=== PATIENT | male | born 1965 | race Caucasian/White ===

== ENCOUNTER 2018-08-29 13:43 | Emergency (ER) | payer OTHER, SELFPAY ==
[2018-08-29 13:48] VITALS: BP 158/98; PULSE 92; RESP 16; TEMP 36.7; O2SAT 98
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
[2018-08-29] MEDS: Ibuprofen 600 MG TAB PO (14:16)
[2018-08-29] MEDS: Acetaminophen 500 MG TAB 1000 MG PO (14:16)
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
== END 2018-08-29 15:37 | disposition home or self-care (01) ==
PROVIDERS: Emergency Provider Physician Assistant; PCP Internal Medicine
DX: T20.10XA Burn of first degree of head, face, and neck, unspecified site, initial encounter (principal); T22.111A Burn of first degree of right forearm, initial encounter; T31.0 Burns involving less than 10% of body surface; X18.XXXA Contact with other hot metals, initial encounter
CPT/HCPCS: 90471; 99283

== ENCOUNTER 2019-02-27 16:05 | Outpatient (REF) | payer OTHER, SELFPAY ==
[2019-02-27 21:38] LABS: Abs Immature Grans 0.01 k/cumm (0.0-0.09); Absolute Basophil Count 0.03 k/cumm (0.0-0.2); Absolute Lymphocyte Count 1.43 k/cumm (1.2-3.4); Absolute Monocyte Count 0.34 k/cumm (0.11-0.7); Absolute Neutrophil Count 3.51 k/cumm (1.2-6.7); Basophils % 0.6; Eosinophils % 1.8; HCT 40.5 % (40.0-50.0); HGB 13.9 g/dL (13.5-17.5); Immature Grans % 0.2; Lymphocytes % 26.4; Mean Corp. HGB Concentration 34.3 g/dL (32.0-36.0); Mean Corpuscular Hemoglobin 31.7 pg (27.0-33.0); Mean Corpuscular Volume 92.3 fL (80-95); Mean Platelet Volume 11.3 fL (8.0-11.0); Monocytes % 6.3; Neutrophils % 64.7; Platelet Count 241 x1000/uL (130-400); RBC 4.39 m/cumm (4.50-6.00); RBC Distribution Width 12.6 % (11.8-14.1); White Blood Cell Count 5.42 k/cumm (4.4-10.8)
[2019-02-27 21:47] LABS: Iron 67 ug/dL (50-175); Total Iron Binding Capacity 258 ug/dL (250-450); Transferrin Sat 26 % (20-55)
[2019-02-27 22:22] LABS: ALT 21 U/L (12-78); AST 13 U/L (15-37); Albumin 3.9 g/dL (3.4-5.0); Alkaline Phosphatase 84 U/L (46-116); Anion Gap 9.3 mmol/L (3-11); BUN 12 mg/dL (7-18); Bilirubin, Total 0.3 mg/dL (0.2-1.0); CO2 26.7 mmol/L (21.0-32.0); CREATININE 1.05 mg/dL (0.70-1.30); Calcium 9.6 mg/dL (8.5-10.1); Chloride 107 mmol/L (98-107); Ferritin 190 ng/mL (8-388); Glucose 91 mg/dL (70-100); Magnesium 2.1 mg/dL (1.8-2.4); Potassium 4.5 mmol/L (3.5-5.1); Sodium 143 mmol/L (136-145); TSH (W/Ref FT4) 0.82 uIU/mL (0.358-3.74); Total Protein 6.8 g/dL (6.4-8.2); Vitamin B12 431 pg/mL (193-986)
[2019-02-27 22:25] LABS: ESR 9 MM/HR (1-20)
[2019-02-27 22:42] LABS: C-Reactive Protein 0.15 mg/dL (0.0-0.3); Creatine Kinase 135 U/L (39-308)
[2019-03-02 00:09] LABS: Anaplasma phagocytophilum Negative (Negative); B. miyamotoi PCR Negative (Negative); Babesia divergens/MO-1 Negative (Negative); Babesia duncani Negative (Negative); Babesia microti Negative (Negative); Ehrlichia chaffeensis Negative (Negative); Ehrlichia ewingii/canis Negative (Negative); Ehrlichia muris eauclairensis Negative (Negative)
[2019-03-03 11:06] LABS: Hepatitis C Ab w Rflx HCV PCR Negative (NEGAT)
[2019-03-03 11:47] LABS: Lyme Ab w Rflx to Lyme Confirm Negative
[2019-03-03 14:00] LABS: ANA Interpretation Negative (NEGAT)
== END 2019-02-27 16:25 ==
LOC: NCHCN 16:05
PROVIDERS: PCP Internal Medicine; Visit Provider Nurse Practitioner Family
DX: R07.9 Chest pain, unspecified (principal); R53.83 Other fatigue; M79.10 Myalgia, unspecified site; W57.XXXA Bitten or stung by nonvenomous insect and other nonvenomous arthropods, initial encounter; T14.8XXA Other injury of unspecified body region, initial encounter; Z11.59 Encounter for screening for other viral diseases
CPT/HCPCS: 80053; 82550; 85652; 86803; 87798; 82607; 82728; 83540; 83550; 83735; 84443; 85025; 86038; 86140; 86618

== ENCOUNTER 2019-07-29 08:21 | Emergency (ER) | payer OTHER, SELFPAY ==
[2019-07-29 08:26] VITALS: BP 148/78; PULSE 79; RESP 18; TEMP 36.7; O2SAT 99
--- NOTE | 2019-07-29 08:29 | DI.RAD_ITS ---
EXAM: XR THUMB LT INDICATION: crushed at prox phalanx in bear trap. COMPARISON: No exams were available for comparison TECHNIQUE: 2D digital imaging was performed. FINDINGS: There is soft tissue swelling around the thumb. There is a fracture fragment seen on the AP view at the joint space. There is also a tiny bony fragment at the radial aspect of the base of the distal p halanx which is not definitely acute. IMPRESSION: Intra-articular fracture at the base of the distal phalanx of the thumb.
--- NOTE | 2019-07-29 08:29 | ED.GENADUL_ITS ---
Discharge Plan Disposition Patient Disposition: HOME Condition: Good Discharge Details Chief Complaint: Orthopedic Clinical Impression: Closed fracture of left thumb Primary Care Provider: Moshe De La Rosa ED Provider: Tho Keenan Home Meds and New Rx's Prescriptions: No Action tadalafil [Cialis] 5 mg tablet 5 mg PO DAILY Qty: 90 RF: 4 acetaminophen 325 mg Tablet 325 mg PO ONCE PRNRF: 0 ibuprofen 200 mg Tablet 200 mg PO Q6H PRNRF: 0 Discharge Instructions Instructions: Thumb Fracture (ED) Additional Instructions: There appears to be a fracture for your thumb. Please keep the splint on for the next 1 to 2 weeks as directed. Take Tylenol and Motrin and ice as needed for pain. If your symptoms do not improve over the next 1 to 2 weeks you may require repeat imaging and evaluation by an project management it specialist. Please do your best to avoid using your thumb. If at any point you change your mind we are happy to write a work note for you to limit your use in need of your thumb. If you notice any worsening of your symptoms, or any new symptoms such as vomiting, diarrhea, fever, chills, shortness of breath, chest pain, numbness, weakness, or fainting , please return immediately to the emergency department for reevaluation. Please follow up with your primary care provider as soon as possible for reassessment and reevaluation. As always, it was a pleasure participating in your medical care today. Referrals: Moshe De La Rosa MD [Primary Care Provider] - Medical Decision Making This is a 53-year-old male who is right-hand dominant who presents today for evaluation of left thumb pain. Yesterday he got his thumb stuck in a [place] trap on his left hand. Thumb was stuck in the trap for 15 minutes as he tried to get it out. He has been using ice, Tylenol and Motrin. He has extreme pain with flexing and extending the thumb, and notable pain with movement of the thumb. He does have good two-point discrimination, and vascular exam demonstrates no evidence of compromise. Suspect fracture of the thumb base. We will get an x-ray for further assessment. Patient does not want any work notes. 8:52 AM X-ray does show evidence of appears to be 2 small fractures, one at the proximal aspect of the distal phalanx with a chip at the edge, as well as a potential tiny fracture at the distal component of the proximal phalanx. We did splint the patient's thumb, he tolerated this well. We did try a thumb spica, however this was both in conducive to the splint otherwise, and incongruent with the patient's lifestyle. I did offer a work note for the patient, which she has denied. Do recommend continued ice, Tylenol and Motrin. Discussed the importance of close follow-up with his PCP and potential orthopedic follow-up if his symptoms do not improve over the next 1 to 2 weeks. I have extensively reviewed the treatment plan and discharge instructions with the patient. I have addressed all patient concerns at this time. The patient was made aware of what symptoms to monitor for that would warrant a return to the emergency department. Discussed the plan with the patient, they demonstrate verbal understanding and agreement with our assessment and plan at this time. HPI General Date/Time Provider Initiated Documentation: 07/29/19 08:26 . HPI Narrative: 53-year-old male who is right-hand dominant presents today for injury to his left thumb. Yesterday he was working on his fever traps when the trap snapped and cut his left thumb. He states that it squished it notably at the proximal phalanx, and it took him 15 minutes to remove it from the trap. He had been icing it using Tylenol and Motrin for pain. He is unable to move the finger secondary to pain. He denies any numbness or tingling. He does state that last night it was fairly numb and tingly though. There were initial color changes when it first happened for about 10 to 15 minutes he says it was blue and purple while it was in the trap. Patient denies any other complaints at this time. He denies any other sites of injury. Related Data Home Medications Medication Instructions Recorded Confirmed tadalafil 5 mg tablet 5 mg PO DAILY #90 tab 04/11/19 04/11/19 acetaminophen 325 mg PO ONCE PRN 07/29/19 07/29/19 ibuprofen 200 mg PO Q6H PRN 07/29/19 07/29/19 Previous Rx's Medication Instructions Recorded tadalafil 5 mg tablet 5 mg PO DAILY #90 tab 04/11/19 Allergies Allergy/AdvReac Type Severity Reaction Status Date / Time No Known Allergies Allergy Unverified 07/29/19 08:29 General Stated Complaint: Orthopedic JOSE: 4 Review of Systems All systems reviewed & are unremarkable except as noted in HPI and below PFSH Family History Father Colon cancer Social History Smoking/Tobacco Use Status: Never Alcohol Intake: never Drug use: Rarely Substance use type: marijuana Do you feel safe at home: Yes Do you feel safe in your relationship?: Yes Exam Narrative Exam Narrative: 1.Const: Well-nourished, Well-developed, appearing stated age 2.Eyes: PERRL, no conjunctival injection, and symmetrical lids. 3.ENT: Atraumatic external nose and ears. Moist MM. Neck: Symmetric, trachea midline, No thyromegaly. 4.CVS: +S1/S2, No murmurs or gallops. Peripheral pulses 2+ and equal in all extremities. Brisk capillary refill in all extremities. 5.RESP: Unlabored respiratory effort. Clear to auscultation bilaterally. No wheezes rales or rhonchi 6.GI: Soft, Nontender/Nondistended, No hepatosplenomegaly. No guarding or rebound. 7.MSK: Normocephalic, Extremities w/o deformity. No cyanosis or clubbing. Left thumb: Patient demonstrates no significant tenderness over the carpals or metacarpals on the left hand, however he demonstrates notable tenderness over the entirety of the proximal phalange, primarily over the proximal component of the proximal phalange he. Mild crepitus with flexion and extension. Although the patient is able to twitch the distal aspect of his thumb he is unable to significantly flex or extend secondary to notable pain. The patient does demonstrate notably intact sensation though, demonstrates good two-point discrimination at the distal tip of the thumb, good capillary refill. No other abnormalities throughout the rest of the thumb. No signs of gross deformity. Mild swelling is present. No evidence of vascular compromise secondary to this mild swelling. 8.Skin: Warm, Dry. No rashes or lesions. 9.Neuro: cardiopulmonary specialist II-XII grossly intact. Sensation grossly intact, no focal neurologic deficits. Please see musculoskeletal 10.Psych: (AAO) x3. Appropriate mood and affect Course Vital Signs Vital signs: Vital Signs Temperature 36.7 C 07/29/19 08:26 Pulse 79 07/29/19 08:26 Respiratory Rate 18 07/29/19 08:26 Blood Pressure 148/78 H 07/29/19 08:26 Pulse Oximetry 99 07/29/19 08:26 Temperature 36.7 C 07/29/19 08:26 Temperature Source Skin 07/29/19 08:26 Pulse 79 07/29/19 08:26 Respiratory Rate 18 07/29/19 08:26 Blood Pressure 148/78 H 07/29/19 08:26 Blood Pressure Position Sitting 07/29/19 08:26 Pulse Oximetry 99 07/29/19 08:26 Oxygen Delivery Method Room Air 07/29/19 08:26 Oxygen Flow Rate 0 07/29/19 08:26
== END 2019-07-29 08:53 | disposition home or self-care (01) ==
PROVIDERS: Emergency Provider Student in an Organized Health Care Education/Training Program; PCP Internal Medicine
DX: S62.522A Displaced fracture of distal phalanx of left thumb, initial encounter for closed fracture (principal); W23.0XXA Caught, crushed, jammed, or pinched between moving objects, initial encounter
CPT/HCPCS: 26750; 73140; L3908

== ENCOUNTER 2020-01-08 12:14 | Emergency (ER) | payer OTHER, SELFPAY ==
[2020-01-08 12:17] VITALS: BP 152/84; PULSE 69; RESP 16; TEMP 37; O2SAT 100
--- NOTE | 2020-01-08 12:27 | ED.GENADUL_ITS ---
Discharge Plan Disposition Patient Disposition: HOME Condition: Stable Discharge Details Chief Complaint: Abd Prob Clinical Impression: Strain of right groin Primary Care Provider: Moshe De La Rosa ED Provider: Ev Perez Home Meds and New Rx's Prescriptions: No Action No Known Home Meds RF: 0 Discharge Instructions Instructions: Groin Strain (ED) Additional Instructions: Apply ice to the affected area several times daily for 20 minutes at a time. Alternate tylenol and motrin as needed and directed for pain. Avoid heavy lifting, pushing or pulling for the next 2 weeks. Follow up with your primary care doctor in 1 week as needed. Return to the emergency department with any worsening or new concerning symptoms. If you have any significant worsening of pain, you can also follow-up with surgery in the office. Their contact information is provided below. Stand Alone Forms: Work Release Referrals: Toma Campbell MD [ [facility] STAFF PHYSICIAN] - Discharge Data Discharge Physician: Ev Perez Medical Decision Making 1225 -- 54-year-old male with history of bilateral hernia repair 2 years ago presents with right groin and bilateral testicular pain with nausea and vomiting since last night. There is a mild area of edema right groin which is tender to palpation. Bilateral testicular tenderness but scrotum appears normal to inspection. Differential diagnosis includes kidney stone, groin strain, hernia. Will place an IV, check screening labs, urinalysis as well as CT abdomen. Will give a dose of Toradol and reassess. 1330 --labs and imaging reviewed and unremarkable. Normal white blood cell count. Urinalysis negative for infection or blood. CT reviewed and notes 1. Upper limits in size appendix but no secondary signs to suggest an acute appendicitis. and 2. No acute abdominal or pelvic process. Patient reassessed -still complaining of right groin pain, denies any relief after Toradol. Patient was offered additional pain medication but he declined. He appears nontoxic and generally comfortable, but as he is still complaining of pain, case discussed with Dr. Barajas who evaluated patient at bedside and reviewed CT with radiologist and agrees that this is likely a groin strain and r ecommends patient rest, ice and limit heavy lifting. Patient was given a work note but he stated he plans to return to work tomorrow. He was advised to rest and avoid heavy lifting. Usual and customary return precautions given prior to discharge. Medical Records Medical records reviewed: Yes I reviewed the patient's medical records. Imaging Data Radiologic Study: Radiologist's impression: CT ABDOMEN PELVIS WO CLINICAL HISTORY: RLQ/R groin pain, r/o kidney stone, hernia. TECHNIQUE: Imaging Protocol: Axial computed tomography images with coronal and sagittal reformatted images were created and reviewed. COMPARISON: ABD PELVIS WITH CONTRAST from 03/21/2018 FINDINGS: ABDOMEN: Lung Bases: Normal where visualized. Liver: Normal density. No measurable mass. Gallbladder and biliary tract: No radiodense calculus or biliary ductal dilation. Pancreas: Normal density, no abnormal calcifications or inflammatory process. Spleen: Normal. Kidneys: Normal size, contour and axis. No radiodense stones or obstructive uropathy. No masses seen. Adrenal glands: No masses seen. Lymph nodes: Within normal limits. Abdominal Aorta: Abdominal portion non-dilated. Mild atherosclerosis. PELVIS: Bladder: Symmetric distention, no gross wall thickening. Bowel: There are few scattered diverticula. But no evidence of colonic diverticulosis. The appendix measures 6-7 mm in diameter. No pericolonic inflammatory change, appendicoliths, abscess or pneumoperitoneum is seen to suggest acute appendicitis. Peritoneal cavity: No ascites, collection or mesenteric inflammatory response. Reproductive organs: Within normal limits. Bones: Degenerative changes are present. Soft Tissues: Within normal limits. IMPRESSION: 1. Upper limits in size appendix but no secondary signs to suggest an acute appendicitis. 2. No acute abdominal or pelvic process. 3. The findings were discussed with the emergency department on the date of the examination. Lab Data Lab results reviewed: Yes I reviewed the patient's lab results. Labs: Laboratory Tests Range/Units 01/08/20 01/08/20 01/08/20 12:48 12:48 12:48 WBC (4.4-10.8) k/cumm 8.21 RBC (4.50-6.00) m/cumm 4.83 Hgb (13.5-17.5) g/dL 15.5 Hct (40.0-50.0) % 44.0 MCV (80-95) fL 91.1 MCH (27.0-33.0) pg 32.1 MCHC (32.0-36.0) g/dL 35.2 RDW (11.8-14.1) % 13.3 Plt Count (130-400) x1000/uL 293 MPV (8.0-11.0) fL 9.1 Immature Gran % % 0.1 Neutrophils % 69.9 Lymphocytes % 23.6 Monocytes % 5.8 Eosinophils % 0.4 Basophils % 0.2 Absolute Neutrophils (1.2-6.7) k/cumm 5.73 Absolute Lymphocytes (1.2-3.4) k/cumm 1.94 Absolute Monocytes (0.11-0.7) k/cumm 0.48 Absolute Eosinophils (0.0-0.7) k/cumm 0.03 Absolute Basophils (0.0-0.2) k/cumm 0.02 Sodium (136-145) mmol/L 138 Potassium (3.5-5.1) mmol/L 4.0 Chloride (98-107) mmol/L 101 Carbon Dioxide (21.0-32.0) mmol/L 27.7 Anion Gap (3-11) mmol/L 9.3 BUN (7-18) mg/dL 18 Creatinine (0.70-1.30) mg/dL 1.06 Estimated GFR/1.73 m2 (mL/min/1.73m2) >= 60.00 Glucose (74-106) mg/dL 88 Calcium (8.5-10.1) mg/dL 9.6 Total Bilirubin (0.2-1.0) mg/dL 0.6 AST (15-37) U/L 24 ALT (16-63) U/L 33 Alkaline Phosphatase (46-116) U/L 89 Total Protein (6.4-8.2) g/dL 8.3 H Albumin (3.4-5.0) g/dL 4.3 Urine Color (Yellow) Yellow Urine Clarity (Clear) Clear Urine pH (5-8) 5.5 Ur Specific [place] (1.005-1.025) >= 1.030 H Urine Protein (Negative) mg/dL Negative Urine Ketones (Negative) mg/dL 15 H Urine Blood (Negative) Negative Urine Nitrite (Negative) Negative Urine Bilirubin (Negative) Negative Urine Urobilinogen (Up TO 0.2) EU/dL 0.2 Ur Leukocyte Esterase (Negative) Negative Urine Glucose (Negative) mg/dL Negative HPI General Mode of arrival: ambulatory . Date/Time Provider Initiated Documentation: 01/08/20 12:25 . Limitations to Documentation: no limitations . Information obtained by: patient . HPI Narrative: Patient is a 54-year-old male who presents with right groin and bilateral testicular pain since last night. He states the pain is worse with movement. He states he was pushing a heavy rototiller last night for a couple hours but denies any known injury. He states a few hours later he developed right groin pain with multiple episodes of vomiting. He states he awoke this morning with continued pain but denies any further nausea or vomiting. He denies any fever, nausea, vomiting, diarrhea or urinary symptoms. He denies any history of kidney stones. He denies any penile discharge. He has not taken any medication for pain. Related Data Home Medications Medication Instructions Recorded Confirmed Unknown [No Known Home Meds] 01/08/20 01/08/20 Allergies Allergy/AdvReac Type Severity Reaction Status Date / Time No Known Allergies Allergy Unverified 01/08/20 12:24 General Stated Complaint: Abd Prob JOSE: 3 Review of Systems All systems reviewed & are unremarkable except as noted in HPI and below Constitutional Constitutional: Reports as per HPI, Denies chills and Denies fever(s) Eyes Eyes: Denies blurry vision ENT Ears, Nose, Mouth, and Throat: Denies dizziness, Denies sore throat and Denies throat swelling Cardiovascular Cardiovascular: Denies chest pain and Denies dyspnea Respiratory Respiratory: Denies cough and Denies dyspnea Gastrointestinal Gastrointestinal: Reports abdominal pain, Denies diarrhea and Denies vomiting Genitourinary Genitourinary: Denies hematuria and Denies dysuria Musculoskeletal Musculoskeletal: Denies back pain and Denies numbness Integumentary/Breasts Skin/Breast: Denies lesions and Denies rash Neurologic Neurologic: Denies dizziness, Denies localized weakness and Denies numbness Allergic/Immunologic Allergic/Immunologic: Denies throat swelling PFSH Family History Father Colon cancer Social History Smoking/Tobacco Use Status: Never Alcohol Intake: current Alcohol Intake frequency: holidays/special occasions only Drug use: Rarely Substance use type: marijuana Do you feel safe at home: Yes Do you feel safe in your relationship?: Yes Exam Const General: cooperative, healthy appearing and no acute distress [facility] Head: normal to inspection Face and sinus: normal facial exam Eyes General: appearance normal, both eyes and all related structures EOM: EOM intact bilaterally Neck Neck: normal visual inspection and No submandibular swelling Lymphatic: no lymphadenopathy noted Chest Chest: normal inspection of the chest and no tenderness Resp Effort & Inspection: normal respiratory effort and able to speak in complete sentences Auscultation: clear to auscultation bilaterally Cardio Rate: regular rate Rhythm: regular rhythm GI Inspection: normal to inspection Palpation: soft, not firm, not rigid and tender (across lower abdomen) Auscultation: hypoactive bowel sounds Abdomen image: 1. Minimal area of edema that is tender to palpation. No rash, erythema, ecchymoses, crepitus. Penis: normal penis Other: Both testicles tender to palpation without edema, ecchymosis, erythema, rash or crepitus. Skin General skin exam: no rashes or lesions noted Neuro General: patient alert, patient awake and patient oriented x3 Cognition: normal cognition Speech: speech normal Motor: muscle tone normal throughout Sensory Exam: no sensory deficits noted Extrem General: normal to inspection, full ROM, capillary refill normal, no calf tenderness bilaterally and no edema Psych Appearance: grossly normal Mental Status: mental status grossly normal Speech and Movement: speech and movement normal Affect: normal affect Course Vital Signs Vital signs: Vital Signs Temperature 98.6 F 01/08/20 12:17 Pulse 69 01/08/20 12:17 Respiratory Rate 16 01/08/20 12:17 Blood Pressure 152/84 H 01/08/20 12:17 Pulse Oximetry 100 01/08/20 12:17 Temperature 98.6 F 01/08/20 12:17 Temperature Source Skin 01/08/20 12:17 Pulse 69 01/08/20 12:17 Respiratory Rate 16 01/08/20 12:17 Respiratory Effort 01/08/20 12:25 Blood Pressure 152/84 H 01/08/20 12:17 Pulse Oximetry 100 01/08/20 12:17 Oxygen Delivery Method Room Air 01/08/20 12:17 Oxygen Flow Rate 0 01/08/20 12:17 Pain Level 4 01/08/20 12:17
--- NOTE | 2020-01-08 12:30 | DI.CT_ITS ---
EXAM: CT ABDOMEN PELVIS WO CLINICAL HISTORY: RLQ/R groin pain, r/o kidney stone, hernia. TECHNIQUE: Imaging Protocol: Axial computed tomography images with coronal and sagittal reformatted images were created and reviewed. COMPARISON: ABD PELVIS WITH CONTRAST from 03/21/2018 FINDINGS: ABDOMEN: Lung Bases: Normal where visualized. Liver: Normal density. No measurable mass. Gallbladder and biliary tract: No radiodense calculus or biliary ductal dilation. Pancreas: Normal density, no abnormal calcifications or inflammatory process. Spleen: Normal. Kidneys: Normal size, contour and axis. No radiodense stones or obstructive uropathy. No masses seen. Adrenal glands: No masses seen. Lymph nodes: Within normal limits. Abdominal Aorta: Abdominal portion non-dilated. Mild atherosclerosis. PELVIS: Bladder: Symmetric distention, no gross wall thickening. Bowel: There are few scattered diverticula. But no evidence of colonic diverticulosis. The appendix measures 6-7 mm in diameter. No pericolonic inflammatory change, appendicoliths, abscess or pneumop eritoneum is seen to suggest acute appendicitis. Peritoneal cavity: No ascites, collection or mesenteric inflammatory response. Reproductive organs: Within normal limits. Bones: Degenerative changes are present. Soft Tissues: Within normal limits. IMPRESSION: 1. Upper limits in size appendix but no secondary signs to suggest an acute appendicitis. 2. No acute abdominal or pelvic process. 3. The findings were discussed with the emergency department on the date of the examination. RADIATION DOSE DELIVERED: Total DLP DATA REPOSITORY: All CT scans at this facility are submitted to the National Radiology Data Registry (NRDR) Dose Index Registry (DIR) with the [employer] (ACR). RADIATION OPTIMIZATION: All CT scans at this facility use at least one of these dose optimization te chniques: automated exposure control; mA and/or kV adjustment per patient size (includes targeted exa ms where dose is matched to clinical indication); or iterative reconstruction.
[2020-01-08 12:56] LABS: Bilirubin Negative (Negative); Blood Negative (Negative); Clarity Clear (Clear); Glucose Negative (Negative); Ketones 15 mg/dL (Negative); Leukocyte Esterase Negative (Negative); Nitrite Negative (Negative); Specific Gravity >= 1.030 (1.005-1.025); Urobilinogen 0.2 EU/dL (Up TO 0.2); pH 5.5 (5-8)
[2020-01-08] MEDS: Normal Saline 1,000 ML 1000 ML IV (12:56)
[2020-01-08] MEDS: Ketorolac 30 MG/ML VIAL IVP (12:56)
[2020-01-08] MEDS: Normal Saline Flush 10 ML SYR IVP (12:57)
[2020-01-08 13:05] LABS: Abs Immature Grans 0.01 k/cumm (0.0-0.09); Absolute Basophil Count 0.02 k/cumm (0.0-0.2); Absolute Eosinophil Count 0.03 k/cumm (0.0-0.7); Absolute Lymphocyte Count 1.94 k/cumm (1.2-3.4); Absolute Monocyte Count 0.48 k/cumm (0.11-0.7); Absolute Neutrophil Count 5.73 k/cumm (1.2-6.7); Basophils % 0.2; Eosinophils % 0.4; HGB 15.5 g/dL (13.5-17.5); Immature Grans % 0.1 %; Lymphocytes % 23.6; Mean Corp. HGB Concentration 35.2 g/dL (32.0-36.0); Mean Corpuscular Hemoglobin 32.1 pg (27.0-33.0); Mean Corpuscular Volume 91.1 fL (80-95); Mean Platelet Volume 9.1 fL (8.0-11.0); Monocytes % 5.8; Neutrophils % 69.9; Platelet Count 293 x1000/uL (130-400); RBC 4.83 m/cumm (4.50-6.00); RBC Distribution Width 13.3 % (11.8-14.1); White Blood Cell Count 8.21 k/cumm (4.4-10.8)
[2020-01-08 13:11] LABS: ALT 33 U/L (16-63); AST 24 U/L (15-37); Albumin 4.3 g/dL (3.4-5.0); Alkaline Phosphatase 89 U/L (46-116); Anion Gap 9.3 mmol/L (3-11); BUN 18 mg/dL (7-18); Bilirubin, Total 0.6 mg/dL (0.2-1.0); CO2 27.7 mmol/L (21.0-32.0); CREATININE 1.06 mg/dL (0.70-1.30); Calcium 9.6 mg/dL (8.5-10.1); Chloride 101 mmol/L (98-107); Glucose 88 mg/dL (74-106); Sodium 138 mmol/L (136-145); Total Protein 8.3 g/dL (6.4-8.2)
--- NOTE | 2020-01-08 20:21 | W.SURGCON ---
Date of service: 01/08/20 Time of Service: 14:00 Assessment and Plan Assessment and plan (1) Strain of right groin: Status: Acute Assessment and plan: Patient is in too much pain to allow an exam of the right groin. He did have a CT done and I did review this with Dr. Means. There is definitely swelling and postsurgical changes noted along the cord. There is no signs of acute herniation. There is no bowel or masses in the scrotum. The appendix is at the upper limits of normal. There is no fluid and there is no associated changes acute appendicitis. There is no appendicolith. I did discuss with patient that this is most likely a groin strain, but cannot rule out appendicitis if he notices increasing pain in the abdomen nausea vomiting fever chills, he should return the ER. Most likely this is a groin strain. He should be off of work for Sunday and the weekend. And then he should be on restrictions no lifting over 20 pounds for 2 weeks. Use ice and NSAIDs, and rest over the weekend. He should give this about 2 weeks to heal. If he still having pain and swelling then he should follow-up with Dr. Campbell to evaluate for possible hernia recurrence. As dated before at this time it does not. He has a recurrence, and just appears to be groin strain he should continue with supportive care. History of Present Illness Narrative: pt had a laprascopic hernia repair done 1 yrs ago. last pm he was rototilling a garden for several hours. Afterwards he started having severe painin the R groin/along the spermatic cord and into the inguinal region. He was up several times during the night vomiting. No one else at home is sick. He did not eat any bad food. He has had no fever or chills. He has had no dry of active cough. No chest pain or shortness of breath. He has not moved his bowels today. He is able to urinate normally. He does not have much appetite and is still nauseated. He has not really is isolated to the inguinal region and not so much in the right lower quadrant. Consults Consult date: 01/08/20 Requesting physician: Ev Perez Review of Systems All systems reviewed & are unremarkable except as noted in HPI and below [facility] Medical History Anal fistula Bilateral inguinal hernia Hearing loss Parotiditis Sebaceous cyst Shoulder pain Surgical History anal fistulotomy Arthroscopy, Shoulder HUMERAL CAP PROSTHESIS (11/10/15) RIGHT/DR. CORDERO Repair of inguinal hernia (11/01/17) bilateral sebaceous cyst excision Family History Father Colon cancer Social History Smoking/Tobacco Use Status: Never Alcohol Intake: current Alcohol Intake frequency: holidays/special occasions only Drug use: Rarely Substance use type: marijuana Do you feel safe at home: Yes Do you feel safe in your relationship?: Yes Exam Const General: cooperative, healthy appearing, comfortable, no acute distress, well developed and well groomed Nutritional Appearance: average body habitus and well nourished Orientation: alert, awake and oriented x3 HENMT Head: normal to inspection, normocephalic and atraumatic Ears: hearing grossly normal bilaterally and external ears normal General nose exam: external nose normal Face and sinus: normal facial exam and sinuses nontender Mouth: oral mucosae normal, lip normal, tongue normal and moist mucous membranes Teeth and gingiva: dentition normal Eyes General: appearance normal, both eyes and all related structures Conjunctivae: conjunctivae normal Sclera: sclerae normal Pupils: PERRL Neck Neck: normal visual inspection and full ROM Chest Chest: normal inspection of the chest Resp Effort & Inspection: normal respiratory effort, able to speak in complete sentences, no cough, no nasal flaring, not tachypneic and no use of accessory muscles Auscultation: clear to auscultation bilaterally, no rales, no rhonchi and no wheezes Cardio Jugular venous pressure: no JVD Rate: regular rate Rhythm: regular rhythm GI Inspection: normal to inspection, no edema and non-distended Palpation: soft, no masses, tender (R inguinal regional. min tender in RLQ/at mcburney's point ) and No ascites Auscultation: normal bowel sounds Other: Postsurgical changes noted. There is mild swelling noted over the area of the left groin along the region on the right cord to the testicle. Patient is too tender to allow a hernia exam. Skin General skin exam: no rashes or lesions noted Trauma: no lacerations or abrasions Neuro General: patient alert, patient oriented x3, oriented, gait normal, moves all extremities, no focal motor deficits and CN's II-XI intact bilaterally Cognition: normal cognition Speech: speech normal Gait: normal gait Motor: muscle tone normal throughout Extrem General: normal to inspection, full ROM and no clubbing, cyanosis or edema Psych Appearance: grossly normal and well kempt Mental Status: mental status grossly normal Speech and Movement: speech and movement normal Affect: normal affect Results Last Vital Signs Temp 37 C 01/08/20 12:17 Pulse 69 01/08/20 12:17 Resp 16 01/08/20 12:17 BP 152/84 H 01/08/20 12:17 Pulse Ox 100 01/08/20 12:17 Labs Result diagrams: 01/08/20 12:48 01/08/20 12:48 Labs: Laboratory Results - last 24 hr 01/08/20 01/08/20 01/08/20 12:48 12:48 12:48 WBC 8.21 RBC 4.83 Hgb 15.5 Hct 44.0 MCV 91.1 MCH 32.1 MCHC 35.2 RDW 13.3 Plt Count 293 MPV 9.1 Immature Gran % 0.1 Neutrophils % 69.9 Lymphocytes % 23.6 Monocytes % 5.8 Eosinophils % 0.4 Basophils % 0.2 Absolute Neutrophils 5.73 Absolute Lymphocytes 1.94 Absolute Monocytes 0.48 Absolute Eosinophils 0.03 Absolute Basophils 0.02 Sodium 138 Potassium 4.0 Chloride 101 Carbon Dioxide 27.7 Anion Gap 9.3 BUN 18 Creatinine 1.06 Estimated GFR/1.73 m2 >= 60.00 Glucose 88 Calcium 9.6 Total Bilirubin 0.6 AST 24 ALT 33 Alkaline Phosphatase 89 Total Protein 8.3 H Albumin 4.3 Urine Color Yellow Urine Clarity Clear Urine pH 5.5 Ur Specific [place] >= 1.030 H Urine Protein Negative Urine Ketones 15 H Urine Blood Negative Urine Nitrite Negative Urine Bilirubin Negative Urine Urobilinogen 0.2 Ur Leukocyte Esterase Negative Urine Glucose Negative
== END 2020-01-08 14:25 | disposition home or self-care (01) ==
LOC: ER 14:29
PROVIDERS: Emergency Provider Physician Assistant; PCP Internal Medicine
DX: S76.211A Strain of adductor muscle, fascia and tendon of right thigh, initial encounter (principal); X58.XXXA Exposure to other specified factors, initial encounter
CPT/HCPCS: 80053; 96361; 96374; 99252; 99285; 74176; 81003; 85025; 99284; J1885

== ENCOUNTER 2020-03-01 08:46 | Outpatient (CLI) | payer OTHER, SELFPAY ==
[2020-03-02 19:45] LABS: COVID-19 RT-PCR UVMMC Result Negative (Negative)
== END 2020-03-01 09:06 ==
PROVIDERS: PCP Internal Medicine; Visit Provider Surgery
DX: Z01.818 Encounter for other preprocedural examination (principal); Z11.59 Encounter for screening for other viral diseases
CPT/HCPCS: U0003

== ENCOUNTER 2020-03-03 06:07 | Day surgery (SDC) | payer OTHER, SELFPAY ==
[2020-03-03] VITALS (8 sets, daily range): BP systolic 118–155; BP diastolic 75–91; PULSE 39–54; RESP 14–17; TEMP 36.4–36.7; O2SAT 98–100
--- NOTE | 2020-03-03 06:41 | ROE_ITS ---
Date of service: 03/03/20 Time of Service: 08:37 Operative Note Operative Note DATE OF PROCEDURE: 03/03/20 PRE-OP DIAGNOSIS: Recurrent right inguinal hernia POST-OP DIAGNOSIS: same (indirect) PROCEDURE: Recurrent right inguinal hernia repair with mesh SURGEON: Toma Campbell SENIOR J[employer] DATA ARCHITECT: Stacy Fabian ANESTHESIA: GETA (ASA 2/ Chung Espinoza CRNA), regional and local ESTIMATED BLOOD LOSS: 10 PATHOLOGY: none sent COMPLICATIONS: None Patient was transported to: same day Patient's condition: stable Implants: BARD Mesh LOT [id number] REF [id number] Indications: Rip is status post bilateral inguinal hernia repair in 2018. He developed right groin pain in December. CT scan at that time didn't show a recurrence. On exam today he has a recurrence on the right side. It is reducible. No recurrence is palpated on the left. Risks, benefits and complications have been reviewed. Complications include but are not limited to bleeding, pain, infection, injury to underlying structures like bowel and adverse reaction to the medication. Questions were entertained and answered to their satisfaction and they wished to proceed. No guarantees were given or implied. COVID-19 test negative Findings: indirect hernia and cord lipoma Procedure Description: After informed consent was obtained the patient was taken to the operating room and placed in a supine position. Monitors and SCDs were applied and a timeout was done. The patient's name, date of , procedure type, procedure site, allergies to medications, preoperative antibiotic, and DVT prophylaxis were all reviewed. Fire risk was assessed. Next anesthesia did a tap block on the right side under ultrasound guidance. Please see their separate dictation. Once anesthesia was done the abdomen was prepped and draped in a sterile surgical fashion. 1% lidocaine was injected into the dermis in the right lower quadrant. An incision was made with a 15 blade in the right lower quadrant. Dissection was done with cautery through the subcutaneous tissues and Yossi's fascia down to the external oblique fascia. The external ring was identified and the external oblique fascia was opened sharply through the external ring. The cut fascia was grasped with hemostats the cord structures were identified and a Gordon drain was placed around them. The cremasteric muscle was dissected away from the cord structures using both cautery and blunt dissection. The branch of the ilioinguinal nerve was identified and cut. There was a cord lipoma which was removed with cautery. A hernia sac was identified and removed from the cord structures using blunt dissection. The hernia sac was suture ligated and amputated. The remnant was pushed back into the peritoneum. A 3 x 6 piece of mesh was then cut to size and attached to the conjoined tendon using a 2-0 Prolene double armed suture. The mesh was secured laterally and medially with a 2-0 Prolene, with a running suture. The tails of the mesh were wrapped around the cord structures effectively cinching down the internal ring. Once the mesh was secured the tissues were irrigated with some normal saline. No bleeding was identified. The external oblique fascia was re-approximated using 2-0 Vicryl running suture. The Yossi's fascia was re-approximated using interrupted 3-0 Vicryl. The dermis was re-approximated with a running 4-0 Vicryl. The skin was cleaned and dried and skin affix was applied. The patient was woken up and taken back to recovery in stable condition. There were no immediate complications. Sponge, instrument and needle counts were correct at the end of the case x2.
--- NOTE | 2020-03-03 06:43 | W.PM.DSUDISC ---
Discharge Plan Disposition Patient Disposition: HOME Condition: Good Discharge Details Reason For Visit: Recurrent right inguinal hernia Attending Provider: Toma Campbell Primary Care Provider: Moshe De La Rosa Home Meds and New Rx's Prescriptions: New acetaminophen [Tylenol] 325 mg tablet 650 mg PO Q6H PRN (Reason: pain) Qty: 30 RF: 0 ibuprofen 600 mg tablet 600 mg PO Q6H PRN (Reason: pain) Qty: 30 RF: 0 Discharge Instructions Instructions: Open Herniorrhaphy (DC) Additional Instructions: Activity at Home after surgery: 1. Make sure you walk outside at least 4 times per day 2. You should be able to climb a flight of stairs 3. No driving while in pain or taking pain medications 4. No strenuous activity or heavy lifting for 4 weeks (open surgery) Diet, Nutrition, & wound healin. Avoid alcohol until after you are recovered from your surgery 2. Make sure to eat plenty of lean protein (meat, fish, eggs, cottage cheese, beans) 3. Eat a variety of fruits and vegetables. Eat plenty of high fiber foods to avoid constipation. 4. Drink plenty of liquids to stay hydrated and avoid constipation Pain Medications: 1. Alternate Tylenol 1000 mg and Ibuprofen 600 mg every 3 hours 2. If a narcotic has been prescribed take as directed only for breakthrough pain For Constipation: 1. Take Milk of Magnesia or MiraLax as needed for constipation Other: 1. You may shower daily. Do not scrub the incisions 2. Do not soak the incisions for 1 week 3. You may alternate ice and heat as needed for pain and swelling Wound Care: 1. Keep the incisions clean and dry Please call our office if you develop: 1. Fevers >101.5 2. Nausea or Vomiting 3. Worsening pain 4. Redness and thick discharge from the wounds If after hours please call the Hospital at and ask to speak to the on-call surgeon Referrals: Toma Campbell MD [ [facility] STAFF PHYSICIAN] - 03/16/20 9:00 am Activity:: no lifting, pulling or pushing >20 lb Remove Dressings/Wound Care:: Do Not Remove Shower/Bathe:: 24 hours Diet:: As Tolerated Discharge Orders Discharge Orders: Discharge Order (Routine); Ordered 03/03/20 Ordered By: Toma Campbell DS: Diagnosis Discharge Diagnosis (1) Recurrent right inguinal hernia: Status: Acute
[2020-03-03] MEDS: Celecoxib 200 MG CAP PO (06:47)
[2020-03-03] MEDS: Lactated Ringers 1,000 ML 80 ML IV (06:47)
[2020-03-03] MEDS: Gabapentin 300 MG CAP 600 MG PO (06:47)
[2020-03-03] MEDS: ceFAZolin 2 GM/50 ML BAG IVPB (07:26)
[2020-03-03] MEDS: Bupivacaine LIPOSOME/PF 133 MG/10 ML VIAL IJ (07:39)
[2020-03-03] MEDS: Bupivacaine 0.5% Pres-Free 30 ML VIAL (07:39)
[2020-03-03] MEDS: Lidocaine 1% Multi-Dose 50 ML VIAL (07:40)
[2020-03-03] MEDS: Ketorolac 30 MG/ML VIAL (09:20)
[2020-03-03] MEDS: fentaNYL 100 MCG/2 ML VIAL IVP (09:37)
== END 2020-03-03 11:12 | disposition home or self-care (01) ==
PROVIDERS: PCP Internal Medicine; Visit Provider Surgery
PROC: (CPT 49520; principal; 2020-03-03 07:30)
DX: K40.91 Unilateral inguinal hernia, without obstruction or gangrene, recurrent (principal); D17.6 Benign lipomatous neoplasm of spermatic cord; G89.18 Other acute postprocedural pain
CPT/HCPCS: 49520; 76942; C1781; J0690; J1100; J1885; J2001; J2405; J3010

== ENCOUNTER 2020-07-26 10:29 | Outpatient (CLI) | payer OTHER, SELFPAY ==
--- NOTE | 2020-07-26 08:00 | DI.RAD_ITS ---
EXAM: XR KNEE RT 4V AP,LAT,IRON,PAT CLINICAL HISTORY: right knee pain. TECHNIQUE: 2D digital imaging was performed. COMPARISON: CR CHEST 2 VIEWS PA,LAT from 09/24/2017 FINDINGS: BONES: No acute fracture is present. No bony destructive lesion is seen. Small enthesophyte at the graves perior patella. JOINTS: The knee is normally aligned. No joint effusion is seen. Mild joint space narrowing and peria rticular spurring in the knee particularly in the medial femoral tibial joint. SOFT TISSUE: Normal. IMPRESSION: Mild degenerative changes of the right knee. DATA REPOSITORY: RADIATION DOSE DELIVERED:
== END 2020-07-26 10:49 ==
PROVIDERS: PCP Internal Medicine; Visit Provider Physician Assistant
DX: M17.11 Unilateral primary osteoarthritis, right knee (principal)
CPT/HCPCS: 73564

== ENCOUNTER 2021-03-24 12:16 | Outpatient (CLI) | payer OTHER, SELFPAY ==
--- NOTE | 2021-03-24 12:00 | DI.RAD_ITS ---
Exam(s) XR KNEE RT 3V AP,LAT,IRON EXAM: XR KNEE RT 3V AP,LAT,IRON CLINICAL HISTORY: R knee pain. TECHNIQUE: 2D digital imaging was performed. COMPARISON: CR XR KNEE RT 4V AP,LAT,IRON,PAT from 07/26/2020 FINDINGS: There is no evidence of fracture. Small amount of increased joint fluid is noted. There are moderat e degenerative changes in the medial compartment. Lateral compartment appears unremarkable. Mild de generative changes in the patellofemoral compartment. No osseous lesions. Bone density is normal. IMPRESSION: Degenerative changes. Small joint effusion DATA REPOSITORY: RADIATION DOSE DELIVERED:
== END 2021-03-24 12:17 | disposition home or self-care (01) ==
LOC: DIORS 12:23
PROVIDERS: PCP Internal Medicine; Visit Provider Physician Assistant
DX: M17.11 Unilateral primary osteoarthritis, right knee (principal); M25.461 Effusion, right knee
CPT/HCPCS: 73562

== ENCOUNTER 2021-04-13 14:39 | Outpatient (CLI) | payer OTHER, SELFPAY ==
--- NOTE | 2021-04-13 14:30 | DI.RAD_ITS ---
Exam(s) XR SHOULDER LT COMPLETE 2+V EXAM: XR SHOULDER LT COMPLETE 2+V CLINICAL HISTORY: left shoulder pain. TECHNIQUE: 2D digital imaging was performed. COMPARISON: CR RIGHT SHOULDER COMPLETE from 01/27/2016 FINDINGS: There is a left shoulder prosthesis. Component appears to be in satisfactory position. No fracture or loosening evident. No abnormal soft tissue calcifications. IMPRESSION: DATA REPOSITORY: RADIATION DOSE DELIVERED:
--- NOTE | 2021-04-13 15:00 | DI.RAD_ITS ---
Exam(s) XR CERVICAL SPINE COMP 4-5V EXAM: XR CERVICAL SPINE COMP 4-5V CLINICAL HISTORY: left arm numbness. TECHNIQUE: 2D digital imaging was performed. COMPARISON: No exams were available for comparison FINDINGS: No evidence of fracture but there is reversal of the normal curvature. No prevertebral soft tissue s welling. There is chronic-type disc space narrowing at C4-5, C5-6, and C6-7 levels. Also multilevel degenerative facet joint changes. No cervical ribs. Calcification is noted both sides the neck whi ch is most probably within calcified plaque at the carotid bifurcations. IMPRESSION: Chronic multilevel degenerative disc disease. No fracture or listhesis but reversal of the normal cu rvature. Incidentally noted is calcified plaque at the level both carotid bifurcations in this 55-year-old pat ient. Recommend follow-up Doppler imaging of the carotid arteries in the neck. DATA REPOSITORY: RADIATION DOSE DELIVERED:
== END 2021-04-13 14:40 | disposition home or self-care (01) ==
PROVIDERS: PCP Internal Medicine; Visit Provider Student in an Organized Health Care Education/Training Program
DX: M25.512 Pain in left shoulder (principal); R20.0 Anesthesia of skin; M50.30 Other cervical disc degeneration, unspecified cervical region; I65.23 Occlusion and stenosis of bilateral carotid arteries
CPT/HCPCS: 72050; 73030

== ENCOUNTER 2022-01-03 04:53 | Outpatient (CLI) | payer OTHER, SELFPAY ==
[2022-01-03 12:00] LABS: Source Nasal/Nares
[2022-01-03 13:59] LABS: COVID-19 PCR Negative (Negative)
== END 2022-01-03 04:54 | disposition home or self-care (01) ==
LOC: LBO 04:53
PROVIDERS: PCP Internal Medicine; Visit Provider Student in an Organized Health Care Education/Training Program
DX: Z20.822 Contact with and (suspected) exposure to COVID-19 (principal); Z01.818 Encounter for other preprocedural examination
CPT/HCPCS: 87635

== ENCOUNTER 2022-01-05 05:50 | Day surgery (SDC) | payer OTHER, SELFPAY ==
[2022-01-05] VITALS (10 sets, daily range): BP systolic 107–136; BP diastolic 68–102; PULSE 60–78; RESP 7–19; TEMP 36.4–36.7; O2SAT 67–98; BMI 25.6
--- NOTE | 2022-01-05 06:29 | W.ANESPRE ---
General Info Date of Service Date Performed: 01/05/22 Height: 6 ft 3 in Weight: 92.9 kg Body Mass Index (BMI): 25.6 Surgical Procedure: Operation Date: 01/05/22 07:40 Proposed Procedure Side Surgeon p Shoulder Total Arthroplasty Left Kamaljit Whyte MD Meds Allergies and Home Medications Allergies Allergy/AdvReac Type Severity Reaction Status Date / Time No Known Allergies Allergy Unverified 01/05/22 06:06 Home Medication Medication Instructions Recorded acetaminophen 325 mg tablet 650 mg PO Q6H PRN #30 tab 03/03/20 (Tylenol) aspirin 81 mg tablet,delayed 81 mg PO DAILY 14 Days #14 tab 01/05/22 release naproxen 250 mg tablet 250 - 500 mg PO BID PRN #40 tab 01/05/22 oxycodone 5 mg tablet 5 - 10 mg PO Q4H PRN #18 tab MDD 01/05/22 30 mg Current Visit Medications: Current Medications Generic Name Dose Route Start Last Admin Trade Name Freq PRN Reason Stop Dose Admin Ringer's Solution 1,000 mls @ 100 mls/hr 01/05/22 06:00 IV 02/03/22 23:59 INFUSION TAMARA Cefazolin Sodium/Dextrose 2 gm in 50 mls @ 100 mls/hr 01/05/22 06:00 Ancef Duplex IVPB 01/05/22 16:00 PREOP TAMARA Tranexamic Acid 1,000 mg/ 60 mls @ 360 mls/hr 01/05/22 06:00 Sodium Chloride IVPB 01/05/22 16:00 DIRECTED TAMARA IV Miscellaneous Supplies 1 each 01/05/22 06:00 Iv Access IV 02/03/22 23:59 DIRECTED TAMARA Sodium Chloride 0 ml 01/05/22 06:00 Normal Saline Flush 10 Ml Syr IV 02/03/22 23:59 PRN PRN Sodium Chloride 0 ml 01/05/22 06:00 Normal Saline 10 Ml Vial IJ 02/03/22 23:59 DIRECTED PRN Sterile Water 0 ml 01/05/22 06:00 Water,Injection,Sterile 10 Ml Vial IJ 02/03/22 23:59 DIRECTED PRN PFSH Active Problems Active Problems: Problem Status Onset Code History of hemiarthroplasty of right shoulder 11/10/15 Z96.611 History of hemiarthroplasty of left shoulder 02/08/11 Z96.612 Arthritis of left shoulder region M19.012 Cervical neuralgia M54.12 Employee exposure to body fluids Z57.8 Degenerative joint disease of right knee M17.11 Epididymal pain 01/21/18 N50.819 Urgency of micturition 10/19/17 R39.15 Urinary frequency 10/19/17 R35.0 Medical History Medical History Anal fistula Bilateral inguinal hernia Carpal tunnel syndrome on both sides Hearing loss Parotiditis Recurrent simple right inguinal hernia Sebaceous cyst Shoulder pain Surgical History Surgical History anal fistulotomy Arthroscopy, Shoulder x2 Repair of inguinal hernia (11/01/17) bilateral sebaceous cyst excision Status post right inguinal hernia repair (~03/03/20) Tobacco Smoking/Tobacco Use Status: Never Alcohol Alcohol Intake: current Alcohol intake frequency: holidays/special occasions only Substance Use Substance use: Rarely Substance use type: marijuana Details: last used 01.04.22 Vital Signs and Lab Results Vital Signs Most Recent Vital Signs in EMR: Most Recent Vital Signs Temp Pulse Resp BP Pulse Ox 36.4 C L 62 16 118/86 98 01/05/22 05:55 01/05/22 05:55 01/05/22 05:55 01/05/22 05:55 01/05/22 05:55 Lab Results Blood Type / Crossmatch: No Data to Display Complete Blood Count: No Data to Display Complete Metabolic Panel: No Data to Display Liver Function Panel: No Data to Display Coagulation Panel: No Data to Display Cardiac Panel: No Data to Display Arterial Blood Gas: No Data to Display Venous Blood Gas: No Data to Display Pancreas Panel: No Data to Display Thyroid Panel: No Data to Display Infectious Disease: Coronavirus (COVID-19)(PCR) Negative (Negative) 01/03/22 11:00 01/03/22 Coronavirus 2019 Source Nasal/Nares 01/03/22 11:00 01/03/22 Blood Cultures: No Data to Display Toxicology Panel: No Data to Display Imaging and Studies Imaging and Studies Study information below may be from another EMR and interpreted by another provider. Please see original notes in EMR for more complete details. Stress Test Summary: PROTOCOL: James TARGET HEART RATE: 145-171 (85-100% of maximal). HEART RATE ACHIEVED: 160 (HR of 171 recorded erroneous due to artifact). TERMINATION OF EXERCISE: At 08 minutes 30 seconds, because: Fatigue, patient request. ARRHYTHMIAS: Occasional PAC's during recovery. ANGINA: None. EKG CHANGES: None. IMPRESSION: Negative for ischemia Anesthesia Assessment and Plan Anesthesia History Personal History: No History of Anesthesia Complications Family History: No Family History of Anesthesia Complications Exercise Tolerance Exercise Tolerance: Metabolic Equivalents>4 Pertinent Negatives Pertinent Negatives: No Symptoms of GERD Cardiac & Pulmonary Exam Cardiac Exam: Normal S1/S2 Heart Sounds Pulmonary Exam: Clear Bilateral Breath Sounds Implantable Cardiac Device Does patient have a Pacemaker or an ICD?: No Airway Exam Known Difficult Airway: No Mallampati Class: 2 Mouth Opening: Normal (> 3cm) Thyromental Distance: Greater than 3 cm Neck Range of Motion: Full ROM Neck Circumference: Normal Teeth Condition: Normal Dentition ASA Classification ASA Score: ASA 2 Emergency Case?: No NPO Status NPO Status: NPO Clears >2 hours, Solids >8 hours Anesthesia Plan Resuscitation Status: Full Code Anesthesia Technique: General Anesthesia Airway Planned: Endotracheal Tube Pain Management: Surgeon and patient request nerve block Monitors Used: Standard Monitors
[2022-01-05] MEDS: Lactated Ringers 1,000 ML 100 ML IV (06:37)
--- NOTE | 2022-01-05 07:19 | W.ANESNERVE ---
Nerve Block Single Injection Procedure Date and Time Date Performed: 01/05/22 Procedure Start: 07:04 Location Where Procedure Performed Procedure Location: Day Surgery Unit Reason Performed: Postoperative Analgesia Requesting Provider: Kamaljit Whyte Timeout Performed Timeout Performed: Yes Monitoring Used ECG, Blood Pressure and SpO2 Sterility Sterility: Hand Hygiene, Surgical Cap, Surgical Mask, Sterile Gloves and Chlorhexidine Sedation Given During Procedure Sedation Given (Indicate Dose Given): Versed IV Dose:: 2 mg Patient Mental Status Patient Mental Status: Sedate with meaningful communication Nerve Block 1st Nerve Block: Laterality: Left Block Type: Interscalene Needle / Catheter Used: 100mm SonoPlex II Local Anesthetic Bolus (Indicate Dose Given): Lidocaine used for local infiltration of skin, Injected in 3-5ml increments after negative blood aspiration, Bupivacaine 0.5% Dose:: 10 ml and Exparel Dose:: 10 ml Additives (Indicate Dose Given): None Ultrasound: Sterile probe cover and gel used Ultrasound Image Saved?: Yes Nerve Stimulator: Not Used Paresthesia: None Procedure Tolerated: No Complications and Patient tolerated well Procedure Outcome: Successful Performed By: Dioni Shearer 2nd Nerve Block: Laterality: Left Block Type: Superficial Cervical Plexus Needle / Catheter Used: 100mm SonoPlex II Local Anesthetic Bolus (Indicate Dose Given): Lidocaine used for local infiltration of skin, Injected in 3-5ml increments after negative blood aspiration and Bupivacaine 0.5% Dose:: 7 ml Additives (Indicate Dose Given): None Ultrasound: Sterile probe cover and gel used Ultrasound Image Saved?: Yes Nerve Stimulator: Not Used Paresthesia: None Procedure Tolerated: No Complications Procedure Outcome: Successful Performed By: Dioni Shearer
[2022-01-05] MEDS: ceFAZolin 2 GM/50 ML BAG IVPB (07:41)
--- NOTE | 2022-01-05 11:45 | DI.RAD_ITS ---
Exam(s) XR SHOULDER LT COMPLETE 2+V EXAM: XR SHOULDER LT COMPLETE 2+V CLINICAL HISTORY: Postop TECHNIQUE: COMPARISON: CR XR SHOULDER LT COMPLETE 2+V from 04/13/2021 FINDINGS: Three views were obtained and show a reverse shoulder prosthesis in position. The components appear well seated. No other significant bony abnormality seen. IMPRESSION: RADIATION DOSE DELIVERED: Total DLP
--- NOTE | 2022-01-05 12:41 | PDOC.DSDIS_ITS ---
Discharge Plan Disposition Patient Disposition: HOME Condition: Stable Discharge Details Reason For Visit: Left shoulder surgery Attending Provider: Kamaljit Whyte Primary Care Provider: Moshe De La Rosa Home Meds and New Rx's Prescriptions: New naproxen 250 mg tablet 250 - 500 mg PO BID PRNQty: 40 0RF Rx Instructions: take with a meal aspirin 81 mg tablet,delayed release (DR/EC) 81 mg PO DAILY 14 Days Qty: 14 0RF oxycodone 5 mg tablet 5 - 10 mg PO Q4H MDD 30 mg PRN (Reason: moderate to severe pain) Qty: 18 0RF Continued acetaminophen [Tylenol] 325 mg tablet 650 mg PO Q6H PRN (Reason: pain) Qty: 30 0RF Discontinued ibuprofen 600 mg tablet 600 mg PO Q6H PRN (Reason: pain) Qty: 30 0RF Discharge Instructions Additional Instructions: Surgery: Left conversion hemiarthroplasty to Reverse total shoulder arthroplasty with biceps tenodesis Activity: Do not lift anything heavier than a coffee. You should keep your arm at your side in a neutral position at all times except for gentle range of motion exercises, physical therapy, and essential activities. You should use the sling whenever you are out of the house. You may have to adjust the abduction pillow or remove it for comfort. At home it is best to remove the sling and rest the arm on a pillow at your side or support the operative side with your other hand. A physical therapy prescription will be sent leonela rossi to start in about 3 weeks. Reverse TSA Protocol: Postoperative Weeks 0-6 ?Immobilization: Sling may be removed for therapeutic exercises, resting in bed or chair, and bathing ?Motion exercises: Pendulum exercises, elbow range- of-motion exercises, wrist [id number] exercises, and channel cementer insole machine strengthening ?Restrictions: No active internal rotation or backwards extension Postoperative Weeks 6-12 ?Immobilization: Sling discontinued ?Motion exercises: Shoulder passive range of motion, advancing to active- assisted range of motion, and finally active range of motion with a goal of forward flexion to 90? and external rotation of 20? ?Strengthening exercises: Light, resisted forward flexion, external rotation, and abduction limited to isometric exercises and therapy bands with concentric motions only. Continue channel cementer insole machine strengthening ?Restrictions: No resisted internal rotation or backwards extension. No scapular retraction exercises with therapy bands Postoperative Months 3-12 ?Motion exercises: Increase [id number] exercises to achieve full motion, with passive stretching at end ranges ?Strengthening: Begin resisted, internal rotation and backwards extension initially with isometric exercises advancing to light therapy bands and then weights. Advance other shoulder strengthening exercises to include the rotator cuff, deltoid, and scapular stabilizers. Advance to functional strengthening, including plyometric exercises and core strengthening. Prescriptions: Aspirin 81 mg take 1 daily to prevent a blood clot for 2 weeks Naproxen 250 mg take 1-2 every 12 hours with a meal as needed for moderate pain Oxycodone 5 mg take 1-2 every 4-6 hours as needed for severe pain You may use [id number] Tylenol (acetaminophen) as needed for mild pain. These pain medications may be taken all at once or in different combinations as needed. Also, recommend Colace (docusate) as a stool softener as surgery and pain medicine cause constipation. Dressings: Leave dressing in place until follow-up. Keep clean and dry at all times. No showers please. Follow-up: 10-[address] Whyte Please call the office during business hours with any questions or concerns. Let us know right away if you develop any redness, drainage, fevers, chest pain, or trouble breathing. Do not drink alcohol or drive for at least 24 hours after anesthesia. Referrals: Kamaljit Whyte MD [ [facility] STAFF PHYSICIAN] - Discharge Orders Discharge Orders: Discharge Order (Routine); Ordered 01/05/22 Ordered By: Kamaljit Whyte DS: Diagnosis Discharge Diagnosis (1) History of hemiarthroplasty of left shoulder: Status: Acute (2) Arthritis of left shoulder region: Status: Acute
--- NOTE | 2022-01-05 13:03 | W.PM.OP ---
Date of service: 01/05/22 Time of Service: 08:00 Operative Note Operative Note DATE OF PROCEDURE: 01/05/22 PRE-OP DIAGNOSIS: Left: 1. Failed shoulder hemiarthroplasty 2. Long head of the biceps tendinopathy POST-OP DIAGNOSIS: same PROCEDURE: Left: 1. Conversion hemiarthroplasty to Reverse total shoulder arthroplasty, CPT# 07426 2. Open biceps tenodesis, CPT # 30388 The journeyman operator assistant was medically required as this procedure involves retraction, protection of neurovascular structures, and manipulation of multiple instruments and implants at the same time, which cannot be done without a skilled journeyman operator assistant. SURGEON: Kamaljit Whyte LOCOMOTIVE PIPE FITTER: Pérez Bashir ANESTHESIA TYPE: General LMA/ETT and Primary Nerve Block Refer to Anesthesia Record ESTIMATED BLOOD LOSS: 300 COMPLICATIONS: None Patient was transported to: PACU Patient's condition: stable Implants: [employer] modular glenoid system baseplate 24 mm, 10 degree full augment [employer] modular glenoid system central post 25 mm [employer] modular glenoid system peripheral compression screw 32 mm inferior; locking screws 28 mm superior, 16mm posterior, 16mm anterior [employer] modular glenoid system glenosphere 42 +4 mm lateralized [employer] humeral stem 135 degrees size 9 [employer] suture cup size 42 posterior offset [employer] humeral insert size 42 +6 mm Indications: Please see complete medical record for details. Findings: Significant adhesions scarring throughout deltopectoral interval. No visible cephalic vein. Scarred contracted subscapularis with medialized attachment to the lesser tuberosity with permanent Ethibond sutures. Largely intact superior rotator cuff with anterior supraspinatus and rotator interval scarring. Significant central annoyed medialization superior and posterior glenoid wear from wagner-CAP.. Procedure Description: In the operating room, general anesthesia was induced. The patient was positioned beachchair on the operating room table. All bony prominences were well-padded. Preoperative antibiotics were administered. The shoulder was prepped and draped in the usual sterile fashion for shoulder arthroplasty. The correct patient, procedure, and side of the procedure were all verified prior to incision. The deltopectoral approach was taken to the anterior shoulder. Care was taken to bluntly dissect the interval between the deltoid and pectoralis major muscles and released scarring and carefully retracted known structures medially and laterally to approach the anterior shoulder significantly complicated by prior open shoulder surgeries. The cephalic vein was not encountered. The subdeltoid, subcoracoid and subscapularis were significantly scarred to surrounding structures. Subdeltoid space and conjoined tendon were freed of adhesions. A subscapularis peel was performed taking care to release the entirety tendon in a full-thickness fashion from superior to inferior and lateral to medial while bringing the arm gradually into external rotation however the medialized prior repair footprint contained a shortened thickened tendon. The long head of the biceps tendon was identified just lateral to the lesser tuberosity. The uppermost margin of the pectoralis major tendon was released from the proximal humerus. The long head of the biceps tendon was tenodesed in situ using SuteuTape in a [id number] fashion securing it superior margin the pectoralis major tendon. The biceps tendon was amputated and followed proximally to identify the rotator interval. Care was taken to avoid the axillary nerve by only working on the bone inferiorly and medially. The subscapularis was tagged using SutureTape and traction used to confirm best possible release and mobilization of the subscapularis tendon after gentle blunt dissection was used to free up the space anterior and posterior to it. Appropriate coagulation was achieved especially inferiorly. The prior wagner-CAP type humeral head prosthesis was exposed with resection of the anterior rotator interval tissue and releasing the anteriormost supraspinatus. Flexible chisel was used to free bone from beneath and the removal tool used with gentle backslash malleting to complete removal. The surgical neck was then protected with retractors and cut using an oscillating saw and the head bone brought back table in case there was a need for future bone grafting. The proximal humeral protection plate was used to provisionally confirm suture cup and glenosphere size. Attention was then turned to the glenoid and retractors were placed and a 360 degree release performed using the long head of the biceps remnant to remove soft tissue about the glenoid rim. The axillary nerve was not readily palpable inferiorly. There was significant medialization and contracture requiring careful releases to expose the glenoid appropriately. Care was taken inferiorly to work on bone only between 5 and 7:00 o'clock and bluntly elevate tissues inferiorly. The glenoid was decorticated soft tissue and a minimal amount of residual cartilage. Once adequate exposure had been achieved, the central glenoid was marked and the 10 degree offset guide used to insert the guidepin just into the far cortex carefully ensuring greater than 25 mm depth before advancing the guidewire bicortically. The bone was very firm and sclerotic as expected. The 10 degree offset reamer was used over the guidewire after using the pilot plant operator helper drill to prepare glenoid surface. The 25 mm drill was then used to repair for the central post. The wire removed. The baseplate was malleted and fully compressed onto the glenoid surface. Testing the glenoid baseplate resulted in movement through the entire scapula. The nonlocking guide and drill was used for the inferior screw with excellent compression. The locking guide and drill were used to drill for remainder superior anterior and posterior locking screws. Depth gauge used to ensure appropriate depth and all screws appropriately engaged. The over baseplate reamer was used to confirm adequate peripheral reaming had been achieved especially inferiorly where a rim of bone was additionally resected carefully with a rongeur. Appropriate posterior humeral head releases were bluntly confirmed and the preselected lateralized glenosphere was applied with the excelsior picker and then impacted to engage the Sterling taper. It was then locked with appropriate countersinking of the setscrew. The glenosphere was inspected and found to have good fit, appropriate positioning, and no soft tissue or bony impingement especially inferiorly. Attention was then turned back to the proximal humerus, which was delivered from the wound and maintained in external rotation. The reamers were started appropriately posterior to the bicipital groove taking care to maintain lateralized alignment so as to be straight in line with the humeral canal. Reaming was done up to size 8. The broaches were sequentially used to open the proximal humerus starting with a size 5 and going up to size 8 and sunk to the appropriate depth while maintaining approximately 30 degrees retroversion. The size 9 had good metaphyseal fit and rotational control the humerus. A posterior offset guide was used to ream for the suture cup. The humeral trial cup was connected. Trialing was commenced with +3mm. The shoulder was reduced and taken through range of motion. It was felt to slightly loose in terms of stability and tension with a + 6 mm liner showing excellent stability and appropriate tension. Range of motion was tested past 90 degrees forward elevation, 75 degrees external rotation, internal rotation to the patient's side, and there was no appreciable impingement or notching with the arm in full adduction. This combination of implants was stable even with the patient paralyzed. The trial components were removed from the proximal humerus. The wound was copiously irrigated with normal saline. A 2 mm drill was used to drill 2 drill holes in the bicipital groove for later subscapularis suture passage repair. The the proximal humeral stem and suture cup were assembled on the back table. They were brought over to the proximal humerus. The upper SutureTape sutures from the subscapularis were passed through a suture cup hole and then through the superior drill hole, and the middle and lower SutureTape sutures through the upper and lower drill holes. Humerus and suture cup were appropriately impacted into the proximal humerus. There were tested and found of excellent rotational control and fixation. When the calcar was inspected there was a 1-2 cm minimally displaced crack that did not propagate down the humeral shaft. The stem was removed and again this fracture inspected with no displacement or extension down the shaft. Prophylactically, a FiberTape doubled over cerclage was passed at this level about the proximal humerus 1 cm distal to the medial calcar neck cut and provisionally tension. The sutures were passed through the subscap parasites and the humeral component and suture cup were impacted again to the appropriate level in the proximal humerus with no change in this small fracture line that was final tightened with FiberTape tensioner appropriate closing and maintaining the proximal humerus. There is excellent humeral component fixation and stability within the proximal humerus. There is no subsidence. Trial reduction for stability and range of motion was done again with the +6 mm combination liner confirming correct size. The trial liner was removed and the definitive liner connected. Shoulder was reduced and these final implants demonstrated excellent range of motion and stability. The shoulder was copiously irrigated with Betadine and then normal saline.. Vancomycin powder was distributed deeply about the shoulder and through subcutaneous tissues. The arm was placed in 45 degrees of external rotation. The subscapularis was reduced as best possible and somewhat medially repaired over the implant to the lessor tuberosity using the pairs of deep and superficial SutureTape sutures taking care ensure there was no undue tension. The arm was taken past 60 degrees of external rotation without any displacement of the subscapularis repair. The lateral rotator interval was closed using suture tape as well with the arm at about 45 degrees of external rotation to avoid any motion restrictions. The deltopectoral interval was allowed to reapproximate itself. Subcutaneous tissue was irrigated then closed using 2-0 Monocryl in a buried interrupted fashion. The skin was closed using 3-0 Monocryl in a buried subcuticular fashion. Skin glue was applied to the incision. A silver impregnated bandage was placed over the incision. The extremity was placed into a shoulder immobilizer. The patient awoke from anesthesia without complication and was taken to the recovery room in stable condition.
--- NOTE | 2022-01-05 13:15 | W.ANESPOSTOP ---
Postoperative Evaluation Date, Time and Location Date Performed: 01/05/22 Time Performed: 13:15 Patient Location: PACU Vital Signs Most Recent Imported Vital Signs: Most Recent Vital Signs Temp Pulse Resp BP Pulse Ox 36.7 C 73 15 117/68 67 L 01/05/22 13:10 01/05/22 13:10 01/05/22 13:10 01/05/22 13:10 01/05/22 13:10 Pain Score Most Recent Pain Score: Most Recent Pain Score Pain Level 3 01/05/22 13:10 Assessment Mental Status: Awake (Alert & Oriented to Patient Baseline) Airway and Respiratory Function: Patent airway with normal (patient baseline) respiratory exam Cardiovascular Function: Hemodynamically Stable Hydration Status: Adequately Hydrated Nausea & Vomiting: No Nausea or Vomiting Pain: Pt. Denies Any Pain Peripheral Nerve Block: Patient did not receive a nerve block
--- NOTE | 2022-01-05 14:14 | W.ANESPOSTOP ---
Postoperative Evaluation Date, Time and Location Date Performed: 01/05/22 Time Performed: 14:14 Patient Location: Day Surgery Unit Vital Signs Most Recent Imported Vital Signs: Most Recent Vital Signs Temp Pulse Resp BP Pulse Ox 36.6 C 66 16 124/72 96 01/05/22 13:50 01/05/22 13:50 01/05/22 13:50 01/05/22 13:50 01/05/22 13:50 Most Recent Vital Signs Temp Pulse Resp BP Pulse Ox 36.7 C 73 15 117/68 67 L 01/05/22 13:10 01/05/22 13:10 01/05/22 13:10 01/05/22 13:10 01/05/22 13:10 Pain Score Most Recent Pain Score: Most Recent Pain Score Pain Level 0 01/05/22 13:50 Assessment Mental Status: Awake (Alert & Oriented to Patient Baseline) Airway and Respiratory Function: Patent airway with normal (patient baseline) respiratory exam Cardiovascular Function: Hemodynamically Stable Hydration Status: Adequately Hydrated Nausea & Vomiting: No Nausea or Vomiting Pain: Pt. Denies Any Pain Peripheral Nerve Block: Patient did not receive a nerve block
== END 2022-01-05 14:48 | disposition home or self-care (01) ==
PROVIDERS: PCP Internal Medicine; Visit Provider Student in an Organized Health Care Education/Training Program
PROC: (CPT 23472; principal; 2022-01-05 07:30)
DX: M19.012 Primary osteoarthritis, left shoulder (principal); M75.22 Bicipital tendinitis, left shoulder
CPT/HCPCS: 23472; 23430; 76942; 73030; J0690; J1100; J1885; J2001; J2250; J2370; J2405; J2704; J3010

== ENCOUNTER 2022-01-18 09:25 | Outpatient (CLI) | payer OTHER, SELFPAY ==
--- NOTE | 2022-01-18 09:15 | DI.RAD_ITS ---
Exam(s) XR SHOULDER LT COMPLETE 2+V EXAM: XR SHOULDER LT COMPLETE 2+V INDICATION: left shoulder f/u. COMPARISON: CR XR SHOULDER LT COMPLETE 2+V from 01/05/2022 TECHNIQUE: 2D digital imaging was performed. Two views. FINDINGS: There has been no change in the alignment of the reverse shoulder prosthesis or appearance of the leona rounding bone. DATA REPOSITORY: RADIATION DOSE DELIVERED:
== END 2022-01-18 09:26 | disposition home or self-care (01) ==
LOC: DIORS 09:25
PROVIDERS: PCP Internal Medicine; Referring Provider Internal Medicine; Visit Provider Student in an Organized Health Care Education/Training Program
DX: M19.012 Primary osteoarthritis, left shoulder (principal); Z96.612 Presence of left artificial shoulder joint; Z47.1 Aftercare following joint replacement surgery
CPT/HCPCS: 73030

== ENCOUNTER 2022-03-01 11:29 | Outpatient (CLI) | payer OTHER, SELFPAY ==
--- NOTE | 2022-03-01 11:00 | DI.RAD_ITS ---
Exam(s) XR SHOULDER LT COMPLETE 2+V EXAM: XR SHOULDER LT COMPLETE 2+V CLINICAL HISTORY: LEFT SHOULDER F/U. TECHNIQUE: 2D digital imaging was performed. Three images were obtained. AP and Y views were obtain ed. COMPARISON: CR XR SHOULDER LT COMPLETE 2+V from 01/18/2022 FINDINGS: BONES: There are stable post operative changes present. No fracture or dislocation. JOINTS: The orthopedic hardware is in good position. Mild degenerative changes are seen at the AC kel int. SOFT TISSUE: Normal. IMPRESSION: Stable postoperative changes. DATA REPOSITORY: RADIATION DOSE DELIVERED:
== END 2022-03-01 11:30 | disposition home or self-care (01) ==
LOC: DIORS 11:30
PROVIDERS: PCP Internal Medicine; Referring Provider Internal Medicine; Visit Provider Student in an Organized Health Care Education/Training Program
DX: M19.012 Primary osteoarthritis, left shoulder (principal); Z98.890 Other specified postprocedural states
CPT/HCPCS: 73030

== ENCOUNTER 2022-04-26 11:18 | Outpatient (CLI) | payer OTHER, SELFPAY ==
--- NOTE | 2022-04-26 11:00 | DI.RAD_ITS ---
Exam(s) XR SHOULDER LT COMPLETE 2+V EXAM: XR SHOULDER LT COMPLETE 2+V CLINICAL HISTORY: LEFT SHOULDER F/U TECHNIQUE: COMPARISON: CR XR SHOULDER LT COMPLETE 2+V from 03/01/2022 FINDINGS: Four views were obtained. There is a reverse shoulder prosthesis in position. The components appear well seated. No other significant bony abnormality seen. IMPRESSION: RADIATION DOSE DELIVERED: Total DLP
== END 2022-04-26 11:19 | disposition home or self-care (01) ==
LOC: DIORS 11:19
PROVIDERS: PCP Internal Medicine; Referring Provider Internal Medicine; Visit Provider Student in an Organized Health Care Education/Training Program
DX: M19.012 Primary osteoarthritis, left shoulder (principal); Z96.611 Presence of right artificial shoulder joint
CPT/HCPCS: 73030

== ENCOUNTER → 2023-06-12 12:53 | Outpatient (CLI) | payer OTHER, SELFPAY ==
--- NOTE | 2023-06-12 12:45 | DI.RAD_ITS ---
Exam(s) XR FOOT LT COMPLETE XR FOOT RT COMPLETE EXAM: XR FOOT RT COMPLETE CLINICAL HISTORY: PAIN IN RIGHT FOOT-[id number]. TECHNIQUE: 2D digital imaging was performed. Three views of both feet weight-bearing.. COMPARISON: CR XR FOOT LT COMPLETE from 06/12/2023 FINDINGS: BONES: No acute fracture is present. No bony destructive lesion is seen. Small plantar calcaneal spu r on the right. Tiny spurs on the left. Plantar arch is maintained bilaterally. Some fragmentation of the 1st metatarsal medial sesamoid could be developmental or related to prior trauma.. JOINTS: No dislocation present. Significant degenerative changes. SOFT TISSUE: Normal. IMPRESSION: Small heel spurs. Some fragmentation of the right medial 1st metatarsal sesamoid could be developmen mohan may be related to prior trauma. DATA REPOSITORY: RADIATION DOSE DELIVERED:
== END ==
PROVIDERS: PCP Internal Medicine; Visit Provider Podiatrist
DX: M79.672 Pain in left foot (principal); M79.671 Pain in right foot
CPT/HCPCS: 73630

== ENCOUNTER → 2023-06-25 16:38 | Outpatient (CLI) | payer OTHER, SELFPAY ==
--- NOTE | 2023-06-25 13:30 | DI.RAD_ITS ---
Exam(s) XR FOOT RT COMPLETE XR HEEL RT OS CALCIS EXAM: XR HEEL RT OS CALCIS and XR foot RT complete CLINICAL HISTORY: Contusion right heel, plantar fascitis rt, S90.31XA, M72.2. TECHNIQUE: 2D digital imaging was performed of the right os calcis and foot. Five images were obtai catie. AP, oblique and lateral views were obtained. COMPARISON: CR XR FOOT RT COMPLETE from 06/12/2023 FINDINGS: BONES: No acute fracture is present. No bony destructive lesion is seen. There is a plantar calcaneal spur. There does appear to be thickening of the soft tissue of the plantar fascia which may represe nt fasciitis. There is a small enthesophyte at the posterior calcaneus. JOINTS: No dislocation present. The joint spaces are well maintained. There is mild spurring at the anterior ankle joint. SOFT TISSUE: Normal. IMPRESSION: 1. Mild soft tissue thickening seen in the region of the plantar fascia which may represent fasciitis . An MRI may be obtained for further evaluation. 2. No acute abnormality. DATA REPOSITORY: RADIATION DOSE DELIVERED:
== END ==
PROVIDERS: PCP Internal Medicine; Visit Provider Podiatrist
DX: M72.2 Plantar fascial fibromatosis (principal); S90.31XA Contusion of right foot, initial encounter; X58.XXXA Exposure to other specified factors, initial encounter
CPT/HCPCS: 73630; 73650

== ENCOUNTER 2023-07-26 16:35 | Emergency (ER) | payer OTHER, SELFPAY ==
[2023-07-26 16:37] VITALS: BP 145/94; PULSE 64; RESP 14; TEMP 37.1; O2SAT 98
[2023-07-26] MEDS: Tetracaine 0.5% 4 ML BTL (16:48)
[2023-07-26] MEDS: Balanced Salt Solution 15 ML BTL (16:48)
[2023-07-26] MEDS: Fluorescein STRIPS 100/BOX 1 MG (16:48)
--- NOTE | 2023-07-26 16:59 | ED.GENADUL_ITS ---
Discharge Plan Disposition Patient Disposition: Home Condition: Stable Discharge Details Clinical Impression: Abrasion, corneal Primary Care Provider: Moshe De [facility] ED Provider: Yang Andersen [facility] Meds and New Rx's Prescriptions: New erythromycin 5 mg/gram (0.5 %) ointment 1 applic ophthalmic (eye) TID 7 Days Qty: 3.5 0RF No Action ibuprofen 200 mg tablet 400 mg PO Q6H PRN tadalafil [Cialis] 5 mg tablet 5 mg PO DAILY acetaminophen [Tylenol] 325 mg tablet 650 mg PO Q6H PRN (Reason: pain) Qty: 30 0RF Discharge Instructions Instructions: Corneal Abrasion (ED) Discharge Data Discharge Date/Time-TO BE ENTERED AT DEPARTURE: 07/26/23 17:28 HPI General Date/Time Provider Initiated Documentation: 07/26/23 16:40 . HPI Narrative: 57 year old male presents with c/o L eye pain after hitting it on a stick while putting away his kayaks. He says he was not wearing his glasses and didn't see it. Feels like it went under his eyelid. He did rinse it copiously at home, still getting some tearing, and says every 20 minutes or so gets a spastic pain. He says vision a little blurry. Tetanus UTD. Related Data Home Medications Medication Instructions Recorded Confirmed acetaminophen 325 mg tablet 650 mg (2 x 325 mg) PO Q6H PRN 03/03/20 07/10/23 (Tylenol) pain #30 tabs ibuprofen 200 mg tablet 400 mg PO Q6H PRN 06/13/23 07/10/23 tadalafil 5 mg tablet (Cialis) 5 mg PO DAILY 06/13/23 07/10/23 erythromycin 5 mg/gram (0.5 %) eye 1 applic ophthalmic (eye) TID 1 07/26/23 ointment week #3.5 grams Previous Rx's Medication Instructions Recorded acetaminophen 325 mg tablet 650 mg (2 x 325 mg) PO Q6H PRN 03/03/20 (Tylenol) pain #30 tabs erythromycin 5 mg/gram (0.5 %) eye 1 applic ophthalmic (eye) TID 1 07/26/23 ointment week #3.5 grams Allergies Allergy/AdvReac Type Severity Reaction Status Date / Time bee sting Allergy Unknown Uncoded 07/10/23 08:35 General Stated Complaint: EyeProblem JOSE: 4 Review of Systems Eyes Comments: +eye pain/injury PFSH All Active Problems (Updated 07/26/23 @ 17:20 by Yang Andersen MD) Abrasion, corneal (Acute) Contusion of right heel (Acute) Plantar fasciitis, right (Acute) Scrotal pain (Acute) Hypertension (Chronic) Malaise and fatigue (Acute) Myalgia (Acute) Erectile dysfunction (Acute) Left upper arm pain (Acute) Left hydrocele (Acute) Status post reverse total arthroplasty of left shoulder (Acute 01/05/22) Arthritis of left shoulder region (Acute) Cervical neuralgia (Acute) Employee exposure to body fluids (Acute) Degenerative joint disease of right knee (Chronic) Epididymal pain (Acute 01/21/18) Urgency of micturition (Acute 10/19/17) Urinary frequency (Acute 10/19/17) Medical History Recurrent simple right inguinal hernia Carpal tunnel syndrome on both sides Bilateral inguinal hernia Anal fistula Parotiditis Hearing loss Shoulder pain Sebaceous cyst Surgical History History of hemiarthroplasty of right shoulder (11/10/15) History of hemiarthroplasty of left shoulder (02/08/11) Status post right inguinal hernia repair (~03/03/20) sebaceous cyst excision anal fistulotomy Repair of inguinal hernia (11/01/17) bilateral Arthroscopy, Shoulder x2 Family History Father Colon cancer Social History Smoking/Tobacco Use Status: Never Smoking risk assessment performed?: Yes Alcohol Intake: current Alcohol Intake frequency: holidays/special occasions only Drug use: Rarely Substance use type: marijuana Current gender identity: male Do you feel safe at home: Yes Do you feel safe in your relationship?: Yes Exam Eyes Other: PERRL; EOM. Mild redness to L eye and left eyelid. everted lid, no FB noted. No hyphema. Small area of increased uptake fluoroscein at 10 o'clock position. Course 57 yo male with L eye injury, exam consistent with corneal abrasion. Will start E-mycin ointment, fu with ophtho. Discussed return precautions, including increased pain, vision loss, swelling, fevers or any other concerns. Reevaluation(s) Initial Evaluation: Visual acuity OS - 20/40, OD - 20/40, OU - 20/30 Vital Signs Vital signs: Vital Signs Temperature 37.1 C 07/26/23 16:37 Pulse 64 07/26/23 16:37 Respiratory Rate 14 07/26/23 16:37 Blood Pressure 145/94 H 07/26/23 16:37 Pulse Oximetry 98 07/26/23 16:37 Temperature 37.1 C 07/26/23 16:37 Temperature Source Skin 07/26/23 16:37 Pulse 64 07/26/23 16:37 Respiratory Rate 14 07/26/23 16:37 Blood Pressure 145/94 H 07/26/23 16:37 Blood Pressure Position Sitting 07/26/23 16:37 Pulse Oximetry 98 07/26/23 16:37 Oxygen Delivery Method Room Air 07/26/23 16:37 Oxygen Flow Rate 0 07/26/23 16:37 Pain Level 3 07/26/23 16:37
== END 2023-07-26 17:28 | disposition home or self-care (01) ==
PROVIDERS: Emergency Provider Emergency Medicine; PCP Internal Medicine
DX: H57.12 Ocular pain, left eye (principal); S05.02XA Injury of conjunctiva and corneal abrasion without foreign body, left eye, initial encounter; W26.8XXA Contact with other sharp object(s), not elsewhere classified, initial encounter; Y92.007 Garden or yard of unspecified non-institutional (private) residence as the place of occurrence of the external cause
CPT/HCPCS: 99283

== ENCOUNTER 2023-09-18 12:41 | Outpatient (CLI) | payer OTHER, SELFPAY ==
--- NOTE | 2023-09-18 08:15 | DI.RAD_ITS ---
Exam(s) XR SHOULDER LT COMPLETE 2+V EXAM: XR SHOULDER LT COMPLETE 2+V CLINICAL HISTORY: evaluate. TECHNIQUE: 2D digital imaging was performed. COMPARISON: CR XR SHOULDER LT COMPLETE 2+V from 04/26/2022 FINDINGS: 3 views Stable position/alignment of the components of the reverse prosthesis. However, when compared to April 2022 there is subtle zone of lucency adjacent to the articular aspec t of the humeral component, not previously present. May indicate some loosening. Similar lucency is not evident around the stem. Also not around the glenoid component. IMPRESSION: As above. Correlation with any clinical signs of loosening recommended DATA REPOSITORY: RADIATION DOSE DELIVERED:
== END 2023-09-18 12:42 | disposition home or self-care (01) ==
LOC: DIORS 12:41
PROVIDERS: PCP Internal Medicine; Visit Provider Student in an Organized Health Care Education/Training Program
DX: M19.012 Primary osteoarthritis, left shoulder (principal); Z96.612 Presence of left artificial shoulder joint; Y99.0 Civilian activity done for income or pay
CPT/HCPCS: 73030

== ENCOUNTER 2023-10-18 02:06 | Outpatient (CLI) | payer OTHER, SELFPAY ==
[2023-10-18 10:37] LABS: Abs Immature Grans 0.02 10^3/uL (0.0-0.06); Absolute Basophil Count 0.05 10^3/uL (0.0-0.2); Absolute Lymphocyte Count 2.37 10^3/uL (1.2-3.4); Absolute Monocyte Count 0.53 10^3/uL (0.1-0.8); Absolute Neutrophil Count 4.64 10^3/uL (1.2-6.7); Basophils % 0.6; ESR 6 mm/hr (0-20); Eosinophils % 2.6; Immature Grans % 0.3; Lymphocytes % 30.3; MCH 31.1 pg (27.0-33.0); MCHC 34.9 % (32.0-36.0); MCV 89 fL (80-95); MPV 9.3 fL (8.0-11.0); Monocytes % 6.8; Neutrophils % 59.4; Platelet Count 279 10^3/uL (130-400); RBC 4.83 10^6/uL (4.36-5.78); RDW 12.9 % (11.8-14.1); RDW-SD 42.4 fL; WBC 7.81 10^3/uL (4.4-10.8)
[2023-10-18 11:44] LABS: C-Reactive Protein < 0.50 mg/dL (<or=0.5)
== END 2023-10-18 02:07 | disposition home or self-care (01) ==
LOC: LBO 02:06
PROVIDERS: PCP Internal Medicine; Visit Provider Student in an Organized Health Care Education/Training Program
DX: M25.512 Pain in left shoulder (principal); Z96.612 Presence of left artificial shoulder joint
CPT/HCPCS: 36415; 85652; 85025; 86140

== ENCOUNTER 2024-03-28 14:38 | Emergency (ER) | payer OTHER, SELFPAY ==
[2024-03-28 14:47] VITALS: BP 149/88; PULSE 58; RESP 18; TEMP 35.7; O2SAT 99
--- OUTSIDE RECORDS SUMMARY | 2024-03-28 15:04 | XMS_ITS | Encounter Summary ---
Author Organization [facility] Address [address] [place] [address] Care Team Providers Care Manager Business Operations Name Role Phone Brad Keenan MD Primary Care Provider [phone] Encounter Details Date Type Department Care Team (Late st Contact Info) Description 09/07/2021 Lab Requisition [facility] Pathology & Laboratory Medicine - [address] [address] Outr Resulting Lab, Provider Social History Tobacco Use Types Packs/Day Years Used Date Smoking Tobacco: Never Assessed Sex and Gender Information Value Date Recorded Sex Assigned at Not on file Gender Identity Not on file Sexual Orientation Not on file documented as of this encounter Plan of Treatment Not on file documented as of this encounter Procedures Procedure Name Priority Date/Time Associated Diagnosis Comments ZZCOVID-19 TEST [facility] PCR Today 09/07/2021 7:22 EST COVID-19 TESTING Routine 09/07/2021 7:22 EST documented in this encounter Results * COVID-19 TEST [facility] PCR (09/07/2021 7:22 EST) Swab 09/07/2021 7:22 EST 09/07/2021 15:33 EST Provider Outr Resulting Lab MICROBIOLOGY - GENERAL ORDERABLES [facility] [address] [place] [address] * (ABNORMAL) COVID-19 TESTING (09/07/2021 7:22 EST) COVID-19 rt-PCR Result Positive(AA ) Negative 09/07/2021 20:37 EST [facility] Comment: This test has not been FDA cleared or approved. This test has been authorized by FDA under an EUA for use by authorized laboratories. This test has been authorized only for detection of nucleic acid from 2019-nCoV, not for any other viruses or pathogens. This test is only authorized for the duration of the declaration that circumstances exist justifying the authorization of emergency use of in vitro diagnostic tests for detection and/or diagnosis of 2019-nCoV under section 564(b)(1) of Act, 21 U.S.C ?? 360bbb-3(b) (1), unless the authorization is terminated or revoked sooner. Performed on the LXSNher Fusion instrument Performing Lab [place] [facility] 09/07/2021 20:37 EST [facility] Swab 09/07/2021 7:22 EST 09/07/2021 15:33 EST Provider Outr Resulting Lab MICROBIOLOGY - GENERAL ORDERABLES [facility] [address] [place] [address] documented in this encounter Visit Diagnoses Not on filedocumented in this encounter Additional Health Concerns Infection Onset Date Last Indicated Resolved Time COVID-19 09/07/2021 09/07/2021 09/27/2021 22:1 5 EST documented as of this encounter Care Teams Manager Business Operations Relationship Specialty Start Date End Date Brad Keenan MD [address] [place] [address] PCP - General 12/20/09 documented as of this encounter
--- OUTSIDE RECORDS SUMMARY | 2024-03-28 15:04 | XMS_ITS | Referral Summary ---
Author Organization [facility] Address [address] [place] [address] Care Team Providers Care Forester Silviculture Name Role Phone Brad Keenan MD Primary Care Provider [phone] Social History Tobacco Use Types Packs/Day Years Used Date Smoking Tobacco: Never Assessed Sex and Gender Information Value Date Recorded Sex Assigned at Not on file Gender Identity Not on file Sexual Orientation Not on file Plan of Treatment Not on file Care Teams Forester Silviculture Relationship Specialty Start Date End Date Brad Keenan MD [address] [place] [address] PCP - General 12/20/09
--- OUTSIDE RECORDS SUMMARY | 2024-03-28 15:04 | XMS_ITS | Encounter Summary ---
Author Organization [facility] Address [address] [place] [address] Care Team Providers Care Robotic Toy Inventor Name Role Phone Unavailable Primary Care Provider Unavailabl e Encounter Details Date Type Department Care Team (Late st Contact Info) Description 12/16/2009 Results Only [facility] Laboratory Services - [facility] ([facility]) [address], [place] [id number] Dylan Harris MD [address] [place] [address] Social History Tobacco Use Types Packs/Day Years Used Date Smoking Tobacco: Never Assessed Sex and Gender Information Value Date Recorded Sex Assigned at Not on file Gender Identity Not on file Sexual Orientation Not on file documented as of this encounter Plan of Treatment Not on file documented as of this encounter Procedures Procedure Name Priority Date/Time Associated Diagnosis Comments SURGICAL PATHOLOGY Routine 12/16/2009 0:00 EDT documented in this encounter Results * SURGICAL PATHOLOGY (12/16/2009 0:00 EDT) Pathology Report: SURGICAL PATHOLOGY REPORT ? Reports generated via electronic interface contain original data; ? however they are lacking the format of the original report. ? Caution should be taken when reading/interpreti ng unformatted reports. ? Name: ? ESCHMANN, RIP ? Accession #: ? [id number] ? : ? 1965 (Age: 44) ??M ? Collect Date: ? 12/16/2009 ? Location: ? [facility] ? Receive Date: ? 12/17/2009 ? Provider: DYLAN ADAMSO MD ? Copy to: MICHAEL SAN MD ? Final Pathologic Diagnosis: ? Soft tissue of torso, left anterior, lipoma, excision: ? - Angiolipoma. ? Document reviewed and electronically signed by: ? Yaquelin Geri. Kalof, MD ? Report ??Date: 12/21/2009 22:00 ? By the signature above, the attending physician certifies that he/she has ? personally conducted a gross and/or microscopic examination of the described ? specimens and rendered or confirmed the above diagnosis. ? Specimen(s) Received: ? Lipoma, torso ? Clinical History: ? Tender lipoma L ant torso ? Gross Description: ? Received in formalin labelled Ivania, Rip and lipoma torso is a 1.0 gram, 2.0 x 1.0 x 0.8 cm firm, light yellow, slightly lobular piece of adipose ?? tissue with a generally smooth to focally slightly rough external surface. ??The resection margin is black inked. ??Sections reveal a homogeneous firm yellow cut surface with no areas of cystic degeneration nor hemorrhage. ??Four ? manufacturer representative sections are submitted in one cassette. ??(Timothy. Adalidtorarsen)/mms ? End of Report ? MIKALA BEE 12/16/2009 12/17/2009 9:3 1 EDT Dylan Harris MD PATHOLOGY ORDERABLES Performing Organization Address City/State/[facility] Co de Phone Number [facility] [address] [place] [address] documented in this encounter Visit Diagnoses Not on filedocumented in this encounter
--- OUTSIDE RECORDS SUMMARY | 2024-03-28 15:04 | XMS_ITS | Encounter Summary ---
Author Organization [facility] Address [address] [place] [address] Care Team Providers Care Ship'S Master Name Role Phone Brad Keenan MD Primary Care Provider [phone] Encounter Details Date Type Department Care Team (Late st Contact Info) Description 03/01/2020 Lab Requisition [facility] Pathology & Laboratory Medicine - [address] [address] Outr Resulting Lab, Provider Social History Tobacco [...] Priority Date/Time Associated Diagnosis Comments ZZCOVID-19 TEST [facility] PCR Today 03/01/2020 11:54 EDT COVID-19 TESTING Routine 03/01/2020 11:5 4 EDT documented in this encounter Results * COVID-19 TEST [facility] PCR (03/01/2020 11:54 EDT) Swab ENTIRE NASOPHARYNX / Unknown 03/01/2020 11:54 EDT 03/01/2020 15:57 EDT Provider Outr Resulting Lab MICROBIOLOGY - GENERAL ORDERABLES [facility] [address] [place] [address] * COVID-19 TESTING (03/01/2020 11:54 EDT) COVID-19 rt-PCR Result Negative Negative 03/02/2020 19:40 EDT [facility] Comment: Negative results do not preclude 2019-nCoV infection and should not be used as the sole basis for treatment or other patient management decisions. Negative results must be combined with clinical observations, patient history, and epidemiological information. This test was developed and its performance characteristics determined by [facility]. It has not been cleared or approved by the US Food and Drug Administration. FDA does not require this test to go through premarket FDA review. This test is used for clinical purposes. It should not be regarded as investigational or for research. This laboratory is certified under the Clinical Laboratory Improvement Amendments (CLIA) as qualified to perform high complexity clinical laboratory testing. This test is based on the CDC COVID-19 Emergency Use Authorization (EUA) assay, with minor modification as defined by the FDA Performed on the XYDO 7500 Fast. Performing Lab [address] [facility] 03/02/2020 19:40 EDT [facility] Swab 03/01/2020 11:5 4 EDT 03/01/2020 15:57 EDT Provider Outr Resulting Lab MICROBIOLOGY - GENERAL ORDERABLES [facility] [address] [place] [address] documented in this encounter Visit Diagnoses Not on filedocumented in this encounter Additional Health Concerns Infection Onset Date Last Indicated Resolved Time COVID-19 09/07/2021 09/07/2021 09/27/2021 22:1 5 EST documented as of this encounter Care Teams Ship'S Master Relationship Specialty Start Date End Date Brad Keenan MD [address] [place] [address] PCP - General 12/20/09 documented as of this encounter
--- OUTSIDE RECORDS SUMMARY | 2024-03-28 15:04 | XMS_ITS | Clinical Summary ---
Author Organization [facility] Address [address] [place] [address] Care Team Providers Care Aquatic Facility Manager Name Role Phone Brad Keenan MD Primary Care Provider [phone] Social History Tobacco Use Types Packs/Day Years Used Date Smoking Tobacco: Never Assessed Sex and Gender Information Value Date Recorded Sex Assigned at Not on file Gender Identity Not on file Sexual Orientation Not on file Plan of Treatment Health Maintenance Due Date Last Done Comments Hepatitis C Screen 1965 Hepatitis B Vaccine (1 of 3 - 19+ 3-dose series) 12/12 COVID-19 Vaccine ( season) 2023 Care Teams Aquatic Facility Manager Relationship Specialty Start Date End Date Brad Keenan MD [address] [place] [address] PCP - General 12/20/09
[2024-03-28 16:37] VITALS: BP 138/90; PULSE 69; RESP 15; TEMP 36.7; O2SAT 100
--- NOTE | 2024-03-28 17:37 | ED.GENADUL_ITS ---
Discharge Plan Disposition Patient Disposition: Home Condition: Stable Discharge Details Clinical Impression: Laceration of left ear Primary Care Provider: Tim Zepeda ED Provider: Vipin Smith Home Meds and New Rx's Prescriptions: New ciprofloxacin HCl 500 mg tablet 500 mg PO BID Qty: 14 0RF amoxicillin-pot clavulanate 875-125 mg tablet 1 tab PO BID Qty: 14 0RF Discharge Instructions Additional Instructions: I placed 3 absorbable sutures in your left ear I would recommend trying a have a pressure dressing on your left ear for the next 2 to 3 days to help prevent a hematoma from forming If you develop any spreading redness from the area yellow-white discharge return to the emergency department for reevaluation HPI General Mode of arrival: ambulatory . Date/Time Provider Initiated Documentation: 03/28/24 14:40 . Limitations to Documentation: no limitations . Information obtained by: patient . History of Present Illness 58 year old M presents to the emergency department with the chief complaint of head stuck between door frame and CT machine, described as moderate, Patient started experiencing this hour(s) (4) and it has been constant. No relieving factors improve symptom(s), No exacerbating factors reported . Patient notes no other symptoms.. Patient did receive the following treatments prior to arrival, none Related Data Home Medications ?Medication ?Instructions ?Recorded ?Confirmed amoxicillin 875 mg-potassium 1 tab PO BID #14 tabs 03/28/24 clavulanate 125 mg tablet ciprofloxacin HCl 500 mg tablet 500 mg PO BID #14 tabs 03/28/24 Previous Rx's ?Medication ?Instructions ?Recorded amoxicillin 875 mg-potassium 1 tab PO BID #14 tabs 03/28/24 clavulanate 125 mg tablet ciprofloxacin HCl 500 mg tablet 500 mg PO BID #14 tabs 03/28/24 Allergies Allergy/AdvReac Type Severity Reaction Status Date / Time bee sting Allergy Unknown Other (See Uncoded 03/28/24 14:49 Comment) General Stated Complaint: HeadInjury JOSE: 3 Review of Systems All systems reviewed & are unremarkable except as noted in HPI and below Constitutional Constitutional: Denies chills, Denies fever(s) and Denies weakness Gastrointestinal Gastrointestinal: Denies vomiting Neurologic Neurologic: Denies weakness Psychiatric Psychiatric: Denies depression Exam Const General: no acute distress Orientation: alert HENMT Head: no palpable skull fracture General nose exam: external nose normal Mouth: moist mucous membranes Eyes General: appearance normal, both eyes and all related structures Neck Neck: normal visual inspection, full ROM and nontender Resp Effort & Inspection: normal respiratory effort and able to speak in complete sentences Cardio Rate: regular rate Skin General skin exam: no rashes or lesions noted Neuro General: patient alert and patient oriented x3 Extrem General: normal to inspection Psych Mental Status: mental status grossly normal Course Vital Signs Vital signs: Vital Signs Temperature 35.7 C L 03/28/24 14:47 Pulse 58 L 03/28/24 14:47 Respiratory Rate 18 03/28/24 14:47 Blood Pressure 149/88 H 03/28/24 14:47 Pulse Oximetry 99 03/28/24 14:47 Temperature 36.7 C 03/28/24 16:37 Temperature Source Tympanic 03/28/24 16:37 Pulse 69 03/28/24 16:37 Respiratory Rate 15 03/28/24 16:37 Respiratory Effort Normal 03/28/24 17:20 Respiratory Depth Normal 03/28/24 17:20 Respiratory Pattern Normal 03/28/24 17:20 Blood Pressure 138/90 03/28/24 16:37 Blood Pressure Position Sitting 03/28/24 14:47 Pulse Oximetry 100 03/28/24 16:37 Oxygen Delivery Method Room Air 03/28/24 16:37 Oxygen Flow Rate 0 03/28/24 16:37 Procedures Laceration Laceration 1: Site: other (ear) Side (If applicable): left Size (cm): 3 Description: linear Depth: simple, single layer Local anesthetic: Lidocaine 1% Amount of anesthesia used (mL): 6 Pre-repair: wound explored and irrigated extensively Skin layer closed with: other (chromic gut) Size (cm): 5-0 Number of sutures: 3 Technique: simple, interrupted Medical Decision Making 58-year-old male who was 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 He did not pass out or loss of consciousness. He has been in the waiting room for quite some time as we had no beds. This happened approximately 4 hours ago. He is alert and oriented x 4 on arrival ambulating without difficulty. He has a 1 cm laceration on the mid inner pinna, is not gaping, do not see any cartilage. He has no scalp hematomas, he is alert and oriented x 4, no focal deficits, cranial nerves II through XII are intact. He he also has a small superficial 1 cm abrasion just superior to the right ear. Will plan for closing his ear with sutures we did discuss doing a CT but it has been 4 hours since the injury and has absolutely no headaches and no vomiting,. He is not on any anticoagulation so after discussion with him and shared decision-making was made to defer head CT at this time. Wound was closed with 3 sutures with absorbable sutures. He tolerated well. I will have him start Cipro and Flagyl provide infection, and use a pressure dressing for the next 2 days to hopefully help prevent a hematoma from forming. Return precautions given Differential Diagnosis Differential Diagnosis: Laceration, abrasion Quality:SDOH Health Related Social Needs: No Data to Display PFSH All Active Problems (Updated 03/28/24 @ 18:05 by Vipin Smith MD) Laceration of left ear (Acute) Left rotator cuff tear (Acute) Left shoulder pain (Acute) Contusion of right heel (Acute) Plantar fasciitis, right (Acute) Scrotal pain (Acute) Hypertension (Chronic) Malaise and fatigue (Acute) Myalgia (Acute) Erectile dysfunction (Acute) Left upper arm pain (Acute) Left hydrocele (Acute) Status post reverse total arthroplasty of left shoulder (Acute 01/05/22) Arthritis of left shoulder region (Acute) Cervical neuralgia (Acute) Employee exposure to body fluids (Acute) Degenerative joint disease of right knee (Chronic) Epididymal pain (Acute 01/21/18) Urgency of micturition (Acute 10/19/17) Urinary frequency (Acute 10/19/17) Medical History Recurrent simple right inguinal hernia Carpal tunnel syndrome on both sides Bilateral inguinal hernia Anal fistula Parotiditis Hearing loss Shoulder pain Sebaceous cyst Surgical History History of hemiarthroplasty of right shoulder (11/10/15) History of hemiarthroplasty of left shoulder (02/08/11) Status post right inguinal hernia repair (~03/03/20) sebaceous cyst excision anal fistulotomy Repair of inguinal hernia (11/01/17) bilateral Arthroscopy, Shoulder x2 Family History Father Colon cancer Social History Smoking/Tobacco Use Status: Never Smoking risk assessment performed?: Yes Alcohol Intake: current Alcohol Intake frequency: holidays/special occasions only Drug use: Rarely Substance use type: marijuana Housing: house Current gender identity: male Do you feel safe at home: Yes Do you feel safe in your relationship?: Yes
[2024-03-28] MEDS: Amoxicillin 875/Clav. 125 TAB PO (18:47)
[2024-03-28] MEDS: Tetanus & Diphtheria Tox,ADULT 0.5 ML VIAL IM (18:47)
[2024-03-28] MEDS: Ciprofloxacin 500 MG TAB PO (18:47)
== END 2024-03-28 18:34 | disposition home or self-care (01) ==
PROVIDERS: Emergency Provider Emergency Medicine; PCP Family Medicine
DX: S01.312A Laceration without foreign body of left ear, initial encounter (principal); I10 Essential (primary) hypertension; Z23 Encounter for immunization; W31.89XA Contact with other specified machinery, initial encounter; Y93.89 Activity, other specified; Y92.238 Other place in hospital as the place of occurrence of the external cause; Y99.0 Civilian activity done for income or pay
CPT/HCPCS: 12013; 90471; 90714; 99283

== ENCOUNTER 2024-04-22 13:17 | Outpatient (CLI) | payer OTHER, SELFPAY ==
--- NOTE | 2024-04-22 11:15 | DI.RAD_ITS ---
Exam(s) XR SHOULDER LT COMPLETE 2+V EXAM: XR SHOULDER LT COMPLETE 2+V CLINICAL HISTORY: left shoulder pain. TECHNIQUE: 2D digital imaging was performed. Three images were obtained. Axillary, Grashey and Y vi ews were obtained. COMPARISON: CR XR SHOULDER LT COMPLETE 2+V from 09/18/2023 FINDINGS: BONES: There are stable post operative changes of a left total reverse shoulder replacement present. No fracture or dislocation. JOINTS: The orthopedic hardware is in good position. No evidence of hardware loosening. SOFT TISSUE: Normal. IMPRESSION: Stable left total reverse shoulder replacement. DATA REPOSITORY: RADIATION DOSE DELIVERED:
== END 2024-04-22 13:18 | disposition home or self-care (01) ==
LOC: DIORS 13:17
PROVIDERS: PCP Family Medicine; Referring Provider Family Medicine; Visit Provider Student in an Organized Health Care Education/Training Program
DX: Z96.612 Presence of left artificial shoulder joint (principal); Z47.1 Aftercare following joint replacement surgery
CPT/HCPCS: 73030

== ENCOUNTER 2024-06-13 07:42 | Day surgery (SDC) | payer OTHER, SELFPAY ==
[2024-06-13] VITALS (46 sets, daily range): BP systolic 112–148; BP diastolic 66–92; PULSE 45–72; RESP 8–25; TEMP 36.1–36.8; O2SAT 96–99; BMI 25.1
--- NOTE | 2024-06-13 07:21 | W.PM.DSUDISC ---
Date of service: 06/13/24 Time of Service: 15:30 Discharge Plan Disposition Patient Disposition: Home Condition: Stable Discharge Details Attending Provider: Kamaljit Whyte Primary Care Provider: Vanessa Herr Home Meds and New Rx's Prescriptions: New amoxicillin 500 mg capsule 500 mg PO TID 14 Days Qty: 42 0RF naproxen 250 mg tablet 250 - 500 mg PO BID PRN (Reason: moderate pain and swelling) Qty: 40 0RF tramadol 50 mg tablet 50 mg PO Q8H PRN (Reason: severe pain) Qty: 9 0RF Bio-K plus 50 billion cell capsule,delayed release(DR/EC) 1 cap PO DAILY 14 Days Qty: 14 0RF Rx Instructions: Use while on antibiotic Continued acetaminophen [Tylenol Extra Strength] 500 mg tablet 500 mg PO Q6H PRN Discharge Instructions Additional Instructions: Surgery: Left revision reverse total shoulder arthroplasty (removed scapular impingement, up-sized glenosphere) Activity: Do not lift anything heavier than a coffee. You should keep your arm at your side in a relatively neutral position at all times except for gentle range of motion exercises, physical therapy, and essential activities. You should use the sling whenever you are out of the house. At home it is best to remove the sling and rest the arm on a pillow at your side or support the operative side with your other hand. A physical therapy prescription will be sent electronically to start in about 3 weeks. Accelerated Reverse TSA Protocol. Prescriptions: Amoxicillin 500 mg take 1 three times daily for 14 days to prevent infection Bio-K plus (probiotic) take 1 daily while on antibiotic Naproxen 250 mg take 1-2 every 12 hours with a meal as needed for moderate pain Tramadol 50 mg take 1 every 8 hours as needed for severe pain You may use [id number] Tylenol (acetaminophen) as needed for mild pain. These pain medications may be taken all at once or in different combinations as needed. Also, recommend Colace (docusate) as a stool softener as surgery and pain medicine cause constipation. You may try [id number] diphenhydramine (Benadryl) 25-50 mg nightly as a sleep aid Dressings: Leave dressing in place until follow-up. Keep clean and dry at all times. No showers please. Follow-up: 10-[address] Whyte You may take off the leg compression stockings this evening at home. You may also leave them on a few days longer if you have a history of leg swelling or edema. Please call the office during business hours with any questions or concerns. Let us know right away if you develop any redness, drainage, fevers, chest pain, or trouble breathing. Do not drink alcohol or drive for at least 24 hours after anesthesia. Stand Alone Forms: Anesthesia Discharge Inst., [place].Nerve Block Instructions, Jayson Rae (DSU) Discharge Orders Discharge Orders: Discharge Order (Routine); Ordered 06/13/24 Ordered By: Courtney Jackson DS: Diagnosis Discharge Diagnosis (1) Status post reverse total arthroplasty of left shoulder: Status: Acute
--- NOTE | 2024-06-13 07:25 | ROE_ITS ---
Date of service: 06/13/24 Time of Service: 11:00 Operative Note Operative Note DATE OF PROCEDURE: 06/13/24 PRE-OP DIAGNOSIS: Left: 1. Painful reverse total shoulder arthoplasty POST-OP DIAGNOSIS: same PROCEDURE: Left: 1. Revision reverse total shoulder arthroplasty, CPT# 49124: Glenoid and humeral components The talent acquisition assistant was medically required as this procedure involves retraction, protection of neurovascular structures, and manipulation of multiple instruments and implants at the same time, which cannot be done without a skilled talent acquisition assistant. SURGEON: Kamaljit Whyte VOICE INSTRUCTOR: Courtney Jackson ANESTHESIA TYPE: Local By Surgeon, General LMA/ETT and Primary Nerve Block Refer to Anesthesia Record ESTIMATED BLOOD LOSS: 250 PATHOLOGY: other (3x tissue specimen, 2x hardware) COMPLICATIONS: None Patient was transported to: PACU Patient's condition: stable Implants: [employer] modular glenoid system baseplate 24 mm, 10 degree full augment -> maintained [employer] modular glenoid system central post 25 mm -> maintained [employer] modular glenoid system peripheral compression screw 32 mm inferior; locking screws 28 mm superior, 16mm posterior, 16mm anterior -> maintained [employer] modular glenoid system glenosphere 42 +4 mm lateralized - > replaced with 45 +4 mm lateralized [employer] humeral stem 135 degrees size 9 -> maintained [employer] suture cup size 42 posterior offset -> maintained [employer] humeral insert size 42 +6 mm -> replaced with 42 +6 mm combo 45 liner Indications: Please see complete medical record for details. Findings: Significantly scarred interval, intact rotator cuff and subscapularis repair. Absolutely no instability, remarkably stable shoulder with abundant healing anteriorly about the subscapularis subcoracoid space and superiorly about the rotator cuff and subdeltoid interval. No overt signs of infection. Stable glenoid and humeral components. Inferior polyethylene erosion from scapular notching with echevarria soft tissue material through the inferior joint probably from polyethylene wear. Separate anterior inferior bone correlated with the separate fragment on imaging. Procedure Description: In the operating room, general anesthesia was induced. The patient was positioned beachchair on the operating room table. All bony prominences were well-padded. Preoperative antibiotics were administered. The shoulder was prepped and draped in the usual sterile fashion for shoulder arthroplasty. The correct patient, procedure, and side of the procedure were all verified prior to incision. The previously use deltopectoral incision was preinjected and then used to access the shoulder. Sharp dissection was carried, there was abundant scarring in the interval was difficult to identify. The vein was not seen again. Careful dissection was used to work between what seem to be the pectoralis major deltoid while staying lateral to the conjoined and coracoid. There was abundant scarring and soft tissue adhesions. The subscapularis repair was then identified with intact quite firmly tissue across the anterior shoulder and proximal humerus with intact permanent stitches. The interval was opened above the space with permanent suture removed here helping identify the greater and lesser tuberosities. The subscapularis was elevated off peeling into external rotation from the lesser tuberosity taking care to work on bone given the challenging soft tissues. The anterior leading edge of the supraspinatus was debrided given the minimal joint excursion. The shoulder joint remained remarkably constrained unable to access the glenosphere or dislocate the suture cup to remove the planned hardware. Carefully with the arm in external rotation and working on bone the anterior inferior capsule was released from the proximal humerus and from the accessible anterior and inferior glenoid margin about the glenosphere. With the shoulder and internal rotation additional anterior supraspinatus was debrided. The setscrew of the glenosphere could then be just barely accessed, it was unscrewed and removed. The glenosphere extractor was applied and the glenosphere from the baseplate atraumatically, and the glenosphere was removed. Now the suture cup could be partially delivered in external rotation and it was removed with a rongeur. Soft tissue debridement was carefully done on all margins removing fibrinous material from around the hardware, which was all intact and firmly healed in place without signs of looseness or problem. Debridement was done through soft tissues especially the polyethylene wear echevarria appearing material about the posterior inferior inferior and anterior joint. After thorough debridement, Betadine was applied let soaked, and then thoroughly washed out, all team members change to clean gloves. Given the intact subscapularis and rotator cuff, excellent shoulder joint stabi lity, the cause of shoulder pain in certain positions seem to most relate to scapular notching. The polyethylene had rough edge and where, and this would be changed with a new polyethylene, to avoid additional scapular notching the anterior and inferior scapula would be debrided and larger glenosphere applied to increase the inferior distance. The adhesed scarred anterior capsule was carefully dissected off the anterior glenoid and retractor placed. Working carefully inferiorly capsular and soft tissue was debrided until the impinging area of bone was identified. Blunt retractors were placed around the anterior inferior and posterior margin of the glenoid, access was more challenging as expected given the intact suture cup in the way and limited proximal humeral mobility. Carefully meticulously significant time spent using the ring curette rongeur's and Mueller's to debride elevate and remove bone from the scapular neck anterior and anterior-inferior glenoid. Once the bone had been removed and contoured nicely away from the baseplate, the loose separate larger piece of bone was identified and brought up from the inferior capsule and soft tissue carefully and bluntly peeled off of it to avoid any neurovascular injury. A few pieces of bone removed before the remainder was removed and entirety. There was no appreciable notching impinging bone or large bone remnant. No actually nerve or vessels were encountered. The 45 degree glenosphere reamer was done over the baseplate levering it more aggressively to ensure entire removal of any appropriate bone. The contoured bone by hand had been done past even this margin anteriorly anterior inferiorly to help ensure no additional scapular notching or future problems. Before the glenosphere was applied, the greater tuberosity rotator cuff was examined and debrided additionally to expose the suture cup superiorly with some additional tendon and bone removal for later liner connection as well as to just increase the excursion enough to apply the glenosphere, liner, with the shoulder dislocated. Once again the shoulder joint was thoroughly irrigated with Betadine and saline. Gloves changed once more given the extensive manual nature of this part of the procedure. The glenosphere was then applied, impacted, and locked in place with the setscrew. It was firmly attached and digitally had a nice and fairly widely clear margin in the area anteriorly through inferiorly. Carefully, the suture cup was delivered and external rotation and given the inherent stability, final +6 mm liner 42 combo for 45 glenosphere applied. Shoulder joint was reduced and tested with excellent range of motion, absolutely no impingement inferiorly anteriorly or concern for additional scapular notching, and quite stable. The elevated and released subscapularis was allowed to remain in place but not formally repaired back to the suture cup at this still had good placement and neither attachments to the bone more inferiorly down the humeral neck or through other adhesions to the pectoralis to the proximal humerus. The remaining rotator cuff supraspinatus was intact as well. The final prosthesis were copiously irrigated with Betadine and then normal saline. Vancomycin powder distributed deeply about the shoulder placement and a small amount through the subcutaneous tissues and interval. The interval was reasonably approximated. Subcutaneous tissue was closed in 2-0 Monocryl in a buried interrupted fashion. The skin was closed with 3-0 Monocryl in a buried subcuticular fashion. Skin glue was applied to the incision. A silver impregnated bandage was placed over the incision. The extremity was placed into a shoulder immobilizer. The patient awoke from anesthesia without complication and was taken to the recovery room in stable condition.
[2024-06-13] MEDS: Lactated Ringers 1,000 ML 30 ML IV (08:46)
--- NOTE | 2024-06-13 08:46 | W.ANESPRE ---
General Info Date of Service Date Performed: 06/13/24 Height: 6 ft 3 in Weight: 91.2 kg Body Mass Index (BMI): 25.1 Surgical Procedure: Operation Date: 06/13/24 09:40 Proposed Procedure Side Surgeon p Shoulder Revision Reverse Total Arthroplasty, Biceps Tenodesis Left Kamaljit Whyte MD Actual Procedure Side Surgeon p Shoulder Revision Reverse Total Arthroplasty, Biceps Tenodesis Left Kamaljit Whyte MD Pre-Op Diagnosis Post-Op Diagnosis (1) Status post reverse total arthroplasty of left shoulder (2) Arthritis of left shoulder region (3) Left rotator cuff tear (1) Status post reverse total arthroplasty of left shoulder (2) Arthritis of left shoulder region (3) Left rotator cuff tear Meds Allergies and Home Medications Allergies Allergy/AdvReac Type Severity Reaction Status Date / Time bee sting Allergy Unknown Other (See Uncoded 06/13/24 08:07 Comment) Home Medication ?Medication ?Instructions ?Recorded acetaminophen 500 mg tablet 500 mg PO Q6H PRN 06/11/24 (Tylenol Extra Strength) L. acidophilus,casei,rhamnosus 50 1 cap PO DAILY 14 days #14 caps 06/13/24 billion cell capsule,delayed release (Bio-K plus) amoxicillin 500 mg capsule 500 mg PO TID prevent infection 14 06/13/24 days #42 caps naproxen 250 mg tablet 250 - 500 mg (1 - 2 x 250 mg) PO 06/13/24 BID PRN moderate pain and swelling #40 tabs tramadol 50 mg tablet 50 mg PO Q8H PRN severe pain #9 06/13/24 tabs Current Visit Medications: Current Medications Generic Name Dose Route Start Last Admin Trade Name Freq PRN Reason Stop Dose Admin Acidophilus/Pectin 1 cap 06/13/24 13:30 Lactobacillus Acidophilus Cap PO 06/13/24 13:31 TODAY@1330 ONE Ringer's Solution 1,000 mls @ 30 mls/hr 06/13/24 06:00 IV 07/12/24 23:59 INFUSION TAMARA Cefazolin Sodium/Dextrose 2 gm in 50 mls @ 100 mls/hr 06/13/24 06:00 Ancef Duplex IVPB 07/12/24 23:59 PREOP TAMARA Tranexamic Acid/Sodium Chloride 1,000 mg in 100 mls @ 600 mls/hr 06/13/24 06:00 IVPB 07/12/24 23:59 PREOP TAMARA Cefazolin Sodium/Dextrose 1 gm in 50 mls @ 100 mls/hr 06/13/24 12:30 Ancef Duplex IVPB 06/13/24 12:59 NOW ONE IV Miscellaneous Supplies 1 each 06/13/24 06:00 Iv Access IV 07/12/24 23:59 DIRECTED TAMARA Oxycodone HCl 0 mg 06/13/24 07:20 Oxycodone 5 Mg Tab PO 07/13/24 07:19 Q3H PRN PRN Pain Sodium Chloride 0 ml 06/13/24 06:00 Normal Saline Flush 10 Ml Syr IV 07/12/24 23:59 PRN PRN Sodium Chloride 0 ml 06/13/24 06:00 Normal Saline 10 Ml Vial IJ 07/12/24 23:59 DIRECTED PRN Sterile Water 0 ml 06/13/24 06:00 Water,Injection,Sterile 10 Ml Vial IJ 07/12/24 23:59 DIRECTED PRN PFSH Active Problems Active Problems: Problem Status Onset Code Post concussive syndrome Acute F07.81 Left rotator cuff tear Acute M75.102 Left shoulder pain Acute M25.512 Contusion of right heel Acute S90.31XA Plantar fasciitis, right Acute M72.2 Scrotal pain Acute N50.82 Hypertension Chronic I10 Malaise and fatigue Acute R53.81, R53.83 Myalgia Acute M79.10 Erectile dysfunction Acute N52.9 Left upper arm pain Acute M79.622 Left hydrocele Acute N43.3 Status post reverse total arthroplasty of left shoulder Acute 01/05/22 Z96.612 Arthritis of left shoulder region Acute M19.012 Cervical neuralgia Acute M54.12 Employee exposure to body fluids Acute Z57.8 Degenerative joint disease of right knee Chronic M17.11 Epididymal pain Acute 01/21/18 N50.819 Urgency of micturition Acute 10/19/17 R39.15 Urinary frequency Acute 10/19/17 R35.0 Medical History Medical History Rotator cuff syndrome of left shoulder Arthritis of shoulder 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 Injury of shoulder Injury of head Reduced libido Chest pain Fatigue Plantar fascial fibromatosis Acquired hydrocele Chronic sinusitis Essential hypertension Recurrent simple right inguinal hernia Carpal tunnel syndrome on both sides Bilateral inguinal hernia Anal fistula Parotiditis Hearing loss Shoulder pain Sebaceous cyst Surgical History Surgical History History of carpal tunnel release of both wrists History of arthroscopy of both knees History of hemiarthroplasty of right shoulder (11/10/15) History of hemiarthroplasty of left shoulder (02/08/11) Status post right inguinal hernia repair (~03/03/20) sebaceous cyst excision anal fistulotomy Repair of inguinal hernia (11/01/17) bilateral Arthroscopy, Shoulder x2 Tobacco Smoking/Tobacco Use Status: Never Alcohol Alcohol Intake: current Alcohol intake frequency: holidays/special occasions only Substance Use Substance use: Rarely Substance use type: marijuana Details: alcohol: t-3 months, marijuana: t-6, pipe Vital Signs and Lab Results Lab Results Blood Type / Crossmatch: No Data to Display Complete Blood Count: No Data to Display Complete Metabolic Panel: No Data to Display Liver Function Panel: No Data to Display Coagulation Panel: No Data to Display Cardiac Panel: No Data to Display Arterial Blood Gas: No Data to Display Venous Blood Gas: No Data to Display Pancreas Panel: No Data to Display Thyroid Panel: No Data to Display Infectious Disease: No Data to Display Blood Cultures: No Data to Display Toxicology Panel: No Data to Display Imaging and Studies Imaging and Studies Study information below may be from another EMR and interpreted by another provider. Please see original notes in EMR for more complete details. Stress Test Summary: PROTOCOL: James TARGET HEART RATE: 145-171 (85-100% of maximal). HEART RATE ACHIEVED: 160 (HR of 171 recorded erroneous due to artifact). TERMINATION OF EXERCISE: At 08 minutes 30 seconds, because: Fatigue, patient request. ARRHYTHMIAS: Occasional PAC's during recovery. ANGINA: None. EKG CHANGES: None. IMPRESSION: Negative for ischemia Anesthesia Assessment and Plan Anesthesia History Personal History: No History of Anesthesia Complications Family History: No Family History of Anesthesia Complications Exercise Tolerance Exercise Tolerance: Metabolic Equivalents>4 Pertinent Negatives Pertinent Negatives: No Symptoms of GERD, No Major Cardiovascular Symptoms or Complaints, No Major Pulmonary Symptoms or Complaints and No History of CVA/TIA Cardiac & Pulmonary Exam Cardiac Exam: Normal S1/S2 Heart Sounds Pulmonary Exam: Clear Bilateral Breath Sounds Implantable Cardiac Device Does patient have a Pacemaker or an ICD?: No Airway Exam Known Difficult Airway: No Mallampati Class: 1 Mouth Opening: Normal (> 3cm) Thyromental Distance: Greater than 3 cm Neck Range of Motion: Full ROM Neck Circumference: Normal Teeth Condition: Normal Dentition ASA Classification ASA Score: ASA 2 Emergency Case?: No NPO Status NPO Status: NPO Clears >2 hours, Solids >8 hours (consumed butterscotch hard candy at 0700 - discussed risks benefits of NPO status, appropriately NPO cleared at 0900 ) Anesthesia Plan Resuscitation Status: Full Code Anesthesia Technique: General Anesthesia Airway Planned: Endotracheal Tube Pain Management: Surgeon and patient request nerve block Monitors Used: Standard Monitors and SedLine Preoperative Comments:: Plan GETA, appropriate IV access, Sedline. W/ interscalene block left Risk/benefits discussed all questions sought and answered.
[2024-06-13] MEDS: ceFAZolin 2 GM/50 ML BAG IVPB (11:05)
[2024-06-13] MEDS: TRANEXAMIC ACID/SOD. CHL. 1,000 MG/100 ML BAG 600 MG IVPB (11:10)
--- NOTE | 2024-06-13 11:18 | W.ANESNERVE ---
Nerve Block Single Injection Procedure Date and Time Date Performed: 06/13/24 Procedure Start: 10:20 Location Where Procedure Performed Procedure Location: Day Surgery Unit Reason Performed: Postoperative Analgesia Requesting Provider: Kamaljit Whyte Timeout Performed Timeout Performed: Yes Monitoring Used ECG, Blood Pressure, SpO2 and See EMR for corresponding vital signs Sterility Sterility: Hand Hygiene, Surgical Cap, Surgical Mask, Sterile Gloves and Chlorhexidine Sedation Given During Procedure Sedation Given (Indicate Dose Given): Versed IV Dose:: 2mg Patient Mental Status Patient Mental Status: Sedate with meaningful communication Nerve Block 1st Nerve Block: Laterality: Left Block Type: Interscalene Ultrasound Image Saved?: Yes Needle / Catheter Used: 80mm SonoPlex II Local Anesthetic Bolus (Indicate Dose Given): Lidocaine used for local infiltration of skin, Injected in 3-5ml increments after negative blood aspiration, Bupivacaine 0.5% Dose:: 10ml and Exparel Dose:: 10ml Additives (Indicate Dose Given): None Ultrasound: Sterile probe cover and gel used Nerve Stimulator: Supplement to Ultrasound use and No twitch or parasthesia noted < 0.5 mA Paresthesia: None Procedure Tolerated: No Complications and Patient tolerated well Procedure Outcome: Successful Performed By: Genaro Serna Supervised By: Dioni Shearer
[2024-06-13] MEDS: Bupivacaine 0.25% Pres-Free W/EPI 30 ML VIAL (11:30)
--- NOTE | 2024-06-13 15:19 | W.ANESPOSTOP ---
Postoperative Evaluation Date, Time and Location Date Performed: 06/13/24 Time Performed: 15:19 Patient Location: PACU Vital Signs Most Recent Imported Vital Signs: Most Recent Vital Signs Temp Pulse Resp BP Pulse Ox 36.5 C 53 L 17 123/80 97 06/13/24 15:11 06/13/24 15:11 06/13/24 15:11 06/13/24 15:11 06/13/24 15:11 Pain Score Most Recent Pain Score: Most Recent Pain Score Pain Level 0 06/13/24 15:03 Assessment Mental Status: Awake (Alert & Oriented to Patient Baseline) Airway and Respiratory Function: Patent airway with normal (patient baseline) respiratory exam Cardiovascular Function: Hemodynamically Stable Hydration Status: Adequately Hydrated Nausea & Vomiting: No Nausea or Vomiting Pain: Pt. Denies Any Pain Peripheral Nerve Block: Regional nerve block not resolved at time of post operative discharge
--- NOTE | 2024-06-13 15:21 | DI.RAD_ITS ---
Exam(s) XR SHOULDER LT COMPLETE 2+V EXAM: XR SHOULDER LT COMPLETE 2+V INDICATION: Post-op. COMPARISON: CR XR SHOULDER LT COMPLETE 2+V from 04/22/2024 TECHNIQUE: 2D digital imaging was performed. Two views. FINDINGS: There has been no change in the alignment of the reverse shoulder prosthesis. Small amount of soft t issue air is seen. No suspicious bony findings. DATA REPOSITORY: RADIATION DOSE DELIVERED:
[2024-06-13] MEDS: ceFAZolin 1 GM/50 ML BAG IVPB (15:22)
[2024-06-13] MEDS: Lactobacillus Acidophilus CAP 1 CAP PO ×2 (15:59)
== END 2024-06-13 17:08 | disposition home or self-care (01) ==
PROVIDERS: PCP Nurse Practitioner Family; Visit Provider Student in an Organized Health Care Education/Training Program
PROC: (CPT 23472; principal; 2024-06-13 09:30)
DX: M19.012 Primary osteoarthritis, left shoulder (principal); Z96.612 Presence of left artificial shoulder joint; M75.102 Unspecified rotator cuff tear or rupture of left shoulder, not specified as traumatic; D17.22 Benign lipomatous neoplasm of skin and subcutaneous tissue of left arm
CPT/HCPCS: 23474; 76942; 87181; 73030; 87070; 87075; 87205; C9290; J0131; J0665; J0690; J1100; J1885; J2250; J2371; J2405; J2704; J3370; J3475

== ENCOUNTER 2024-06-25 15:16 | Outpatient (CLI) | payer OTHER, SELFPAY ==
--- NOTE | 2024-06-25 10:45 | DI.RAD_ITS ---
Exam(s) XR SHOULDER LT COMPLETE 2+V EXAM: XR SHOULDER LT COMPLETE 2+V CLINICAL HISTORY: F/U LEFT RTSA. TECHNIQUE: 2D digital imaging was performed. Four images were obtained. Grashey and Y views were ob tained. COMPARISON: CR XR SHOULDER LT COMPLETE 2+V from 06/13/2024 FINDINGS: BONES: There are stable post operative changes of a left total reverse shoulder replacement present. No fracture or dislocation. JOINTS: The orthopedic hardware is in good position. No evidence of hardware loosening. SOFT TISSUE: Normal. IMPRESSION: Stable left total reverse shoulder replacement. DATA REPOSITORY: RADIATION DOSE DELIVERED:
== END 2024-06-25 15:17 | disposition home or self-care (01) ==
LOC: DIORS 15:17
PROVIDERS: PCP Nurse Practitioner Family; Visit Provider Student in an Organized Health Care Education/Training Program
DX: Z98.890 Other specified postprocedural states (principal)
CPT/HCPCS: 73030

== ENCOUNTER 2024-08-27 16:04 | Outpatient (CLI) | payer OTHER, SELFPAY ==
--- NOTE | 2024-08-27 11:15 | DI.RAD_ITS ---
Exam(s) XR SHOULDER LT COMPLETE 2+V EXAM: XR SHOULDER LT COMPLETE 2+V CLINICAL HISTORY: F/U LEFT REVISION RTSA. TECHNIQUE: 2D digital imaging was performed. COMPARISON: CR XR SHOULDER LT COMPLETE 2+V from 06/25/2024 FINDINGS: Two views There is stable position alignment of the components of the reverse prosthesis. No fracture or loose sarabjit evident. No evidence of osteomyelitis. No soft tissue gas. IMPRESSION: Stable satisfactory appearance DATA REPOSITORY: RADIATION DOSE DELIVERED:
== END 2024-08-27 16:05 | disposition home or self-care (01) ==
LOC: DIORS 16:04
PROVIDERS: PCP Nurse Practitioner Family; Visit Provider Student in an Organized Health Care Education/Training Program
DX: Z96.612 Presence of left artificial shoulder joint (principal); Z47.1 Aftercare following joint replacement surgery
CPT/HCPCS: 73030

== ENCOUNTER 2024-11-11 14:54 | Outpatient (CLI) | payer OTHER, SELFPAY ==
--- NOTE | 2024-11-11 10:45 | DI.RAD_ITS ---
Exam(s) XR SHOULDER LT COMPLETE 2+V EXAM: XR SHOULDER LT COMPLETE 2+V INDICATION: F/U LEFT REVISION RTSA. COMPARISON: CR XR SHOULDER LT COMPLETE 2+V from 08/27/2024 TECHNIQUE: 2D digital imaging was performed. Two views. FINDINGS: Stable alignment of shoulder prosthesis. No abnormal surrounding lucencies. DATA REPOSITORY: RADIATION DOSE DELIVERED:
== END 2024-11-11 14:55 | disposition home or self-care (01) ==
LOC: DIORS 14:55
PROVIDERS: PCP Nurse Practitioner Family; Visit Provider Physician Assistant
DX: Z96.612 Presence of left artificial shoulder joint (principal); Z47.1 Aftercare following joint replacement surgery
CPT/HCPCS: 73030

== ENCOUNTER 2025-02-12 06:16 | Day surgery (SDC) | payer OTHER, SELFPAY ==
[2025-02-12] VITALS (21 sets, daily range): BP systolic 109–158; BP diastolic 63–88; PULSE 37–56; RESP 11–20; TEMP 36.2–36.5; O2SAT 96–100; BMI 27.1
[2025-02-12] MEDS: Lactated Ringers 1,000 ML 80 ML IV (06:50)
--- NOTE | 2025-02-12 06:51 | W.PM.HP.N ---
Date of service: 02/12/25 Time of Service: 06:52 Assessment and Plan Assessment and plan (1) Left hydrocele: Status: Acute Assessment and plan: For hydrocelectomy History of Present Illness History of Present Illness Chief Complaint: Left hydrocele Narrative: This is a 59-year-old gentleman who has a history of left scrotal swelling. On exam and ultrasound, the swelling is consistent with a hydrocele. He has had repeated aspirations for symptomatic relief but he is now able to commit to a full recovery from hydrocelectomy. He presents for definitive procedure. Review of Systems Narrative: No fevers or chills No vision change or dysphasia No diabetes or thyroid dysfunction No shortness of breath, cough or hemoptysis No chest pain or palpitations No nausea, vomiting, hepatitis, ulcers, jaundice No seizures, strokes or peripheral neuropathy No bleeding disorders or anemia No gout PFSH All Active Problems Ear injury (Acute) Pain in ear (Acute) Post concussive syndrome (Acute) Left rotator cuff tear (Acute) Left shoulder pain (Acute) Contusion of right heel (Acute) Plantar fasciitis, right (Acute) Scrotal pain (Acute) Hypertension (Chronic) Malaise and fatigue (Acute) Myalgia (Acute) Erectile dysfunction (Acute) Left upper arm pain (Acute) Left hydrocele (Acute) Status post reverse total arthroplasty of left shoulder (Acute 01/05/22) s/p Left revision reverse total shoulder arthroplasty (removed scapular impingement, up-sized glenosphere) 06/13/24 Arthritis of left shoulder region (Acute) Cervical neuralgia (Acute) Employee exposure to body fluids (Acute) Degenerative joint disease of right knee (Chronic) Epididymal pain (Acute 01/21/18) Urgency of micturition (Acute 10/19/17) Urinary frequency (Acute 10/19/17) Medical History Rotator cuff syndrome of left shoulder Arthritis of shoulder 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 Injury of shoulder Injury of head Reduced libido Chest pain Fatigue Plantar fascial fibromatosis Acquired hydrocele Chronic sinusitis Essential hypertension Recurrent simple right inguinal hernia Carpal tunnel syndrome on both sides Bilateral inguinal hernia Anal fistula Parotiditis Hearing loss Shoulder pain Sebaceous cyst Surgical History History of carpal tunnel release of both wrists History of arthroscopy of both knees History of hemiarthroplasty of right shoulder (11/10/15) History of hemiarthroplasty of left shoulder (02/08/11) Status post right inguinal hernia repair (~03/03/20) sebaceous cyst excision anal fistulotomy Repair of inguinal hernia (11/01/17) bilateral Arthroscopy, Shoulder x2 Family History Father Colon cancer CAD (coronary artery disease) Brother Dysrhythmia Social History Smoking/Tobacco Use Status: Never Smoking risk assessment performed?: Yes Alcohol Intake: current Alcohol Intake frequency: holidays/special occasions only Drug use: Rarely Substance use type: marijuana Details: alcohol: t-3 months, marijuana: t-1, pipe Housing: house Current gender identity: male Do you feel safe at home: Yes Do you feel safe in your relationship?: Yes Meds Allergies and Home Medications Allergies Allergy/AdvReac Type Severity Reaction Status Date / Time bee sting Allergy Unknown Other (See Uncoded 02/12/25 06:25 Comment) Home Medications ?Medication ?Instructions ?Recorded ?Confirmed ?Type acetaminophen 500 mg tablet 500 mg PO Q6H PRN 06/11/24 02/10/25 History (Tylenol Extra Strength) ibuprofen 400 mg tablet 400 mg PO TID 08/14/24 02/10/25 History magnesium oxide 400 mg (241.3 mg 400 mg PO DAILY 08/14/24 02/12/25 History magnesium) tablet Exam Const General: cooperative Neck Neck: supple Resp Effort & Inspection: normal respiratory effort Cardio Rate: regular rate Rhythm: regular rhythm GI Inspection: normal to inspection Scrotum: hydrocele on the left Neuro General: patient alert, patient awake and patient oriented x3 Results Last Vital Signs Temp 36.5 C 02/12/25 06:27 Pulse 56 L 02/12/25 06:27 Resp 18 02/12/25 06:27 BP 131/88 02/12/25 06:27 Pulse Ox 97 02/12/25 06:27 Time Spent Time spent with Patient: <40 minutes Time was spent: other
--- NOTE | 2025-02-12 07:11 | W.ANESPRE ---
General Info Date of Service Date Performed: 02/12/25 Height: 6 ft 2 in Weight: 95.8 kg Body Mass Index (BMI): 27.1 Surgical Procedure: Operation Date: 02/12/25 07:40 Proposed Procedure Side Surgeon p Hydrocelectomy Bill Will MD Meds Allergies and Home Medications Allergies Allergy/AdvReac Type Severity Reaction Status Date / Time bee sting Allergy Unknown Other (See Uncoded 02/12/25 06:25 Comment) Home Medication ?Medication ?Instructions ?Recorded acetaminophen 500 mg tablet 500 mg PO Q6H PRN 06/11/24 (Tylenol Extra Strength) ibuprofen 400 mg tablet 400 mg PO TID 08/14/24 magnesium oxide 400 mg (241.3 mg 400 mg PO DAILY 08/14/24 magnesium) tablet Current Visit Medications: Current Medications Generic Name Dose Route Start Last Admin Trade Name Freq PRN Reason Stop Dose Admin Ringer's Solution 1,000 mls @ 80 mls/hr 02/12/25 06:00 02/12/25 06:50 IV 02/12/25 23:59 80 mls/hr INFUSION TAMARA Administration Cefazolin Sodium/Dextrose 2 gm in 50 mls @ 100 mls/hr 02/12/25 06:00 Ancef Duplex IVPB 02/12/25 23:59 PREOP TAMARA IV Miscellaneous Supplies 1 each 02/12/25 06:00 Iv Access IV 02/12/25 23:59 DIRECTED TAMARA Sodium Chloride 0 ml 02/12/25 06:00 Normal Saline Flush 10 Ml Syr IV 02/12/25 23:59 PRN PRN Sodium Chloride 0 ml 02/12/25 06:00 Normal Saline 10 Ml Vial IJ 02/12/25 23:59 DIRECTED PRN Sterile Water 0 ml 02/12/25 06:00 Water,Injection,Sterile 10 Ml Vial IJ 02/12/25 23:59 DIRECTED PRN PFSH Active Problems Active Problems: Problem Status Onset Code Ear injury Acute S09.91XA Pain in ear Acute H92.09 Post concussive syndrome Acute F07.81 Left rotator cuff tear Acute M75.102 Left shoulder pain Acute M25.512 Contusion of right heel Acute S90.31XA Plantar fasciitis, right Acute M72.2 Scrotal pain Acute N50.82 Hypertension Chronic I10 Malaise and fatigue Acute R53.81, R53.83 Myalgia Acute M79.10 Erectile dysfunction Acute N52.9 Left upper arm pain Acute M79.622 Left hydrocele Acute N43.3 Status post reverse total arthroplasty of left shoulder Acute 01/05/22 Z96.612 Arthritis of left shoulder region Acute M19.012 Cervical neuralgia Acute M54.12 Employee exposure to body fluids Acute Z57.8 Degenerative joint disease of right knee Chronic M17.11 Epididymal pain Acute 01/21/18 N50.819 Urgency of micturition Acute 10/19/17 R39.15 Urinary frequency Acute 10/19/17 R35.0 Medical History Medical History Rotator cuff syndrome of left shoulder Arthritis of shoulder 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 Injury of shoulder Injury of head Reduced libido Chest pain Fatigue Plantar fascial fibromatosis Acquired hydrocele Chronic sinusitis Essential hypertension Recurrent simple right inguinal hernia Carpal tunnel syndrome on both sides Bilateral inguinal hernia Anal fistula Parotiditis Hearing loss Shoulder pain Sebaceous cyst Surgical History Surgical History History of carpal tunnel release of both wrists History of arthroscopy of both knees History of hemiarthroplasty of right shoulder (11/10/15) History of hemiarthroplasty of left shoulder (02/08/11) Status post right inguinal hernia repair (~03/03/20) sebaceous cyst excision anal fistulotomy Repair of inguinal hernia (11/01/17) bilateral Arthroscopy, Shoulder x2 Tobacco Smoking/Tobacco Use Status: Never Alcohol Alcohol Intake: current Alcohol intake frequency: holidays/special occasions only Substance Use Substance use: Rarely Substance use type: marijuana Details: alcohol: t-3 months, marijuana: t-1, pipe Vital Signs and Lab Results Vital Signs Most Recent Vital Signs in EMR: Most Recent Vital Signs Temp Pulse Resp BP Pulse Ox 36.5 C 56 L 18 131/88 97 02/12/25 06:27 02/12/25 06:27 02/12/25 06:27 02/12/25 06:27 02/12/25 06:27 Lab Results Blood Type / Crossmatch: No Data to Display Complete Blood Count: No Data to Display Complete Metabolic Panel: No Data to Display Liver Function Panel: No Data to Display Coagulation Panel: No Data to Display Cardiac Panel: No Data to Display Arterial Blood Gas: No Data to Display Venous Blood Gas: No Data to Display Pancreas Panel: No Data to Display Thyroid Panel: No Data to Display Infectious Disease: No Data to Display Blood Cultures: No Data to Display Toxicology Panel: No Data to Display Imaging and Studies Imaging and Studies Study information below may be from another EMR and interpreted by another provider. Please see original notes in EMR for more complete details. Stress Test Summary: PROTOCOL: James TARGET HEART RATE: 145-171 (85-100% of maximal). HEART RATE ACHIEVED: 160 (HR of 171 recorded erroneous due to artifact). TERMINATION OF EXERCISE: At 08 minutes 30 seconds, because: Fatigue, patient request. ARRHYTHMIAS: Occasional PAC's during recovery. ANGINA: None. EKG CHANGES: None. IMPRESSION: Negative for ischemia Anesthesia Assessment and Plan Anesthesia History Personal History: No History of Anesthesia Complications Family History: No Family History of Anesthesia Complications Exercise Tolerance Exercise Tolerance: Metabolic Equivalents>4 Pertinent Negatives Pertinent Negatives: No Symptoms of GERD, No Major Cardiovascular Symptoms or Complaints, No Major Pulmonary Symptoms or Complaints and No History of CVA/TIA Cardiac & Pulmonary Exam Cardiac Exam: Normal S1/S2 Heart Sounds Pulmonary Exam: Clear Bilateral Breath Sounds Implantable Cardiac Device Does patient have a Pacemaker or an ICD?: No Airway Exam Known Difficult Airway: No Mallampati Class: 1 Mouth Opening: Normal (> 3cm) Thyromental Distance: Greater than 3 cm Neck Range of Motion: Full ROM Neck Circumference: Normal Teeth Condition: Normal Dentition ASA Classification ASA Score: ASA 2 Emergency Case?: No NPO Status NPO Status: NPO Clears >2 hours, Solids >8 hours Anesthesia Plan Resuscitation Status: Full Code Anesthesia Technique: General Anesthesia Airway Planned: LMA Monitors Used: Standard Monitors
[2025-02-12] MEDS: ceFAZolin 2 GM/50 ML BAG IVPB (07:37)
[2025-02-12] MEDS: Bupivacaine 0.25% Pres-Free 30 ML VIAL (07:59)
--- NOTE | 2025-02-12 08:26 | PDOC.DSDIS_ITS ---
Date of service: 02/12/25 Discharge Plan Disposition Patient Disposition: Home Condition: Stable Discharge Details Reason For Visit: hydrocelectomy Attending Provider: Bill Will Primary Care Provider: Vanessa Herr Home Meds and New Rx's Prescriptions: New tramadol 50 mg tablet 50 mg PO Q6H PRN (Reason: pain) Qty: 15 0RF Rx Instructions: may take with tylenol and/or NSAIDs No Action acetaminophen [Tylenol Extra Strength] 500 mg tablet 500 mg PO Q6H PRN ibuprofen 400 mg tablet 400 mg PO TID magnesium oxide 400 mg (241.3 mg magnesium) tablet 400 mg PO DAILY Discharge Instructions Additional Instructions: Wear scrotal support and use ice packs to the scrotum (a bag of frozen peas works well) for the next 48 hours or so. You can then use the scrotal support and ice packs as needed You may use Tylenol and anti-inflammatory medications for pain. I have sent in a prescription for tramadol to use along with the Tylenol and anti- inflammatories if you should need You may shower starting tomorrow but do not soak in a tub or pool until the skin is totally healed Follow-up with me in the office in about 2 to 3 weeks for a wound check. Activity:: no lifting over 10 to 20 pounds until followup visit Remove Dressings/Wound Care:: 24 hours Shower/Bathe:: 24 hours Diet:: As Tolerated Discharge Orders Discharge Orders: Discharge Order (Routine); Ordered 02/12/25 Ordered By: Bill Will DS: Diagnosis Discharge Diagnosis (1) Left hydrocele: Status: Acute
--- NOTE | 2025-02-12 08:30 | W.PM.OP ---
Operative Note Operative Note PRE-OP DIAGNOSIS: Left hydrocele POST-OP DIAGNOSIS: same PROCEDURE: left hydrocelectomy SURGEON: Bill Will ANESTHESIA TYPE: Local By Surgeon and General LMA/ETT Refer to Anesthesia Record ESTIMATED BLOOD LOSS: 5 PATHOLOGY: none sent COMPLICATIONS: None Patient was transported to: PACU Patient's condition: stable Implants: none Indications: This is a 59-year-old gentleman who has a symptomatic left hydrocele. He has had aspiration procedures for symptomatic improvement when he was not able to commit to the time required for recovery after surgery. He is now able to commit to the recovery time and he presents for a definitive hydrocelectomy Findings: Dense scar tissue around the left tunica vaginalis Procedure Description: The patient was given IV antibiotics and brought to the operating room on 02/12/2025. He was placed in the supine position. After successful induction of general anesthesia, his genitalia was prepped and draped. A left scrotal field block was performed using quarter percent Marcaine without epinephrine. A left scrotal transverse incision was made and the incision was extended down through the subcutaneous fat and dartos muscle. The testis, still within the tunica vaginalis was dissected free from the overlying dartos muscle using blunt dissection. The testis was then delivered through the incision. We began dissecting the adherent connective tissue away from the tunica vaginalis. The adherent connective tissue was quite dense. Once the tunica was appropriately freed, we were able to open the tunica on the anterior aspect and draining a large amount of yellow-tinged fluid from the hydrocele sac. The edges of the hydrocele sac were then everted behind the testis. The edges were reapproximated using a running segment of 3-0 chromic suture. We utilized the locking sutures for hemostasis. A left-sided cord block was then performed with quarter percent Marcaine without epinephrine. The testis was delivered back within the left hemiscrotum. The dartos muscle was closed with a short running segment of 3-0 chromic. The scrotal skin was closed with a 4-0 Vicryl subcuticular suture. Skin glue was then applied followed by a fluff dressing and a scrotal support. The patient tolerated this procedure well with no complications. He was taken to the recovery room in stable condition. Date of Procedure: 02/12/25
--- NOTE | 2025-02-12 09:51 | W.ANESPOSTOP ---
Postoperative Evaluation Date, Time and Location Date Performed: 02/12/25 Time Performed: 09:21 Patient Location: Day Surgery Unit Vital Signs Most Recent Imported Vital Signs: Most Recent Vital Signs Temp Pulse Resp BP Pulse Ox 36.2 C L 52 L 16 145/63 H 100 02/12/25 09:48 02/12/25 09:48 02/12/25 09:48 02/12/25 09:48 02/12/25 09:48 Pain Score Most Recent Pain Score: Most Recent Pain Score Pain Level 0 02/12/25 09:17 Assessment Mental Status: Awake (Alert & Oriented to Patient Baseline) Airway and Respiratory Function: Patent airway with normal (patient baseline) respiratory exam Cardiovascular Function: Hemodynamically Stable Hydration Status: Adequately Hydrated Nausea & Vomiting: No Nausea or Vomiting Pain: Pt. Denies Any Pain Peripheral Nerve Block: Patient did not receive a nerve block
== END 2025-02-12 10:24 | disposition home or self-care (01) ==
PROVIDERS: PCP Nurse Practitioner Family; Visit Provider Urology
PROC: (CPT 55040; principal; 2025-02-12 07:30)
DX: N43.3 Hydrocele, unspecified (principal)
CPT/HCPCS: 55040; J0665; J0690; J1100; J1885; J2405; J2704

== ENCOUNTER 2025-06-24 14:04 | Outpatient (CLI) | payer OTHER, SELFPAY ==
--- NOTE | 2025-06-24 11:00 | DI.RAD_ITS ---
Exam(s) XR SHOULDER LT COMPLETE 2+V EXAM: XR SHOULDER LT COMPLETE 2+V CLINICAL HISTORY: F/U LEFT RTSA. TECHNIQUE: 2D digital imaging was performed. Three images were obtained. Grashey, axillary and Y views were obtained. COMPARISON: CR XR SHOULDER LT COMPLETE 2+V from 06/13/2024 CR XR SHOULDER LT COMPLETE 2+V from 06/25/2024 CR XR SHOULDER LT COMPLETE 2+V from 08/27/2024 CR XR SHOULDER LT COMPLETE 2+V from 11/11/2024 FINDINGS: BONES: There are stable post operative changes of a left reverse total shoulder arthroplasty present. No fracture or dislocation. JOINTS: The orthopedic hardware is in good position. No evidence of hardware loosening. There has been no change in appearance of the proximal left humerus. SOFT TISSUE: Normal. IMPRESSION: Stable appearance of the left reverse total shoulder arthroplasty. DATA REPOSITORY: RADIATION DOSE DELIVERED:
== END 2025-06-24 14:05 | disposition home or self-care (01) ==
LOC: DIORS 14:05
PROVIDERS: PCP Nurse Practitioner Family; Visit Provider Student in an Organized Health Care Education/Training Program
DX: Z96.612 Presence of left artificial shoulder joint (principal)
CPT/HCPCS: 73030